=== PATIENT | female | born 1955 | race African-American/Black ===

== ENCOUNTER 2024-10-18 16:37 | Emergency (ER) | payer MEDICARE, OTHER ==
[~2024-10-18] VITALS: Ht 162.6 cm; Wt 90.7 kg
[2024-10-18] MEDS ORDERED: DIATR MEGLU/DIATRIZOATE SODIUM 30 ML BOTTLE (GASTROGRAPHIN) ONE (16:52)
[2024-10-18 17:46] LABS: CALCIUM, SERUM 9.3 mg/dL (8.5-10.1); CREATININE 0.5 mg/dL (0.6-1.3); POTASSIUM 3.5 mmol/L (3.5-5.1)
[2024-10-18 17:52] LABS: INR 1.06 (0.91-1.10); PARTIAL THROMBOPLASTIN TIME 27.6 SEC (24.3-34.3); PROTHROMBIN TIME 10.9 SECS (9.2-11.1)
[2024-10-18 18:00] LABS: BASOPHILS % (AUTO) 0.4 % (0.0-2.0); EOSINOPHILS # (AUTO) 0.5 K/uL (0.0-0.7); EOSINOPHILS % (AUTO) 4.4 % (0.0-6.0); HEMATOCRIT 29 % (33-45); HEMOGLOBIN 8.8 g/dL (11.5-14.8); LYMPHOCYTES # (AUTO) 0.8 K/uL (0.8-4.8); LYMPHOCYTES % (AUTO) 7.5 % (20.0-44.0); MEAN CORPUSCULAR HEMOGLOBIN 22 PG (26.0-33.0); MEAN CORPUSCULAR HGB CONC 30 g/dl (31.0-36.0); MEAN CORPUSCULAR VOLUME 73 fL (82-100); MONOCYTES % (AUTO) 9.2 % (2.0-12.0); NEUTROPHILS # (AUTO) 8.8 K/uL (1.8-8.9); NEUTROPHILS % (AUTO) 78.5 % (43.0-81.0); RED BLOOD CELL COUNT(AUTO) 3.98 MIL/uL (4.0-5.2); RED CELL DISTRIBUTION WIDTH 20.8 % (11.5-15.0); WHITE BLOOD COUNT (AUTO) 11.2 K/uL (4.3-11.0)
[2024-10-18] MEDS ORDERED: ACET-868 GT ×3 (19:05)
[2024-10-18] MEDS ORDERED: ATOR80TA GT (19:05)
[2024-10-18] MEDS ORDERED: LEVE100S GT (19:05)
[2024-10-18] MEDS ORDERED: CHOL100043 GT (19:05)
[2024-10-18] MEDS ORDERED: L. A1TAB10 GT (19:05)
[2024-10-18] MEDS ORDERED: DOCU100T2 GT (19:05)
[2024-10-18] MEDS ORDERED: MAGN400T30 GT (19:05)
[2024-10-18] MEDS ORDERED: MULT-213 GT (19:05)
[2024-10-18] MEDS ORDERED: ALBU2.5V13 IH (19:05)
[2024-10-18] MEDS ORDERED: CLOP75TA15 GT (19:05)
[2024-10-18] MEDS ORDERED: PREG300C GT (19:05)
[2024-10-18] MEDS ORDERED: CHLO473M5 MM (19:05)
[2024-10-18] MEDS ORDERED: NUT.237L30 GT (19:05)
[2024-10-18] MEDS ORDERED: MAGN400O6 GT (19:05)
[2024-10-18] MEDS ORDERED: APIX2.5T GT (19:05)
[2024-10-18] MEDS ORDERED: ISOS20TA15 GT (19:05)
[2024-10-18] MEDS ORDERED: TRAM50TA2 GT ×2 (19:05)
[2024-10-18] MEDS ORDERED: IPRA0.2S9 IH ×2 (19:05)
[2024-10-18] MEDS ORDERED: COLL30OI TP (19:05)
[2024-10-18] MEDS ORDERED: PETR113O TP (19:05)
[2024-10-18] MEDS ORDERED: CRAN250C GT (19:05)
[2024-10-18] MEDS ORDERED: ASCO-352 GT (19:05)
[2024-10-18] MEDS ORDERED: TRIA80CR12 TP (19:05)
[2024-10-18] MEDS ORDERED: AMLO10TA4 GT (19:05)
[2024-10-18] MEDS ORDERED: HYDR-4075 GT (19:05)
[2024-10-18] MEDS ORDERED: INSU100I26 SQ (19:05)
[2024-10-18] MEDS ORDERED: PANT40TA2 GT (19:05)
[2024-10-18] MEDS ORDERED: ALBU2.5V38 IH (19:05)
[2024-10-18] MEDS ORDERED: ACET-2030 GT (19:05)
[2024-10-18] MEDS ORDERED: AMIN30LI66 GT (19:05)
[2024-10-18] MEDS ORDERED: OXCA600T5 GT (19:05)
[2024-10-18] MEDS ORDERED: INSU100V39 SQ (19:05)
[2024-10-18] MEDS ORDERED: NEBI5TAB8 GT (19:05)
[2024-10-18 19:27] LABS: LYMPHOCYTES % (MANUAL) 10 % (16-48); NEUTROPHILS % (MANUAL) 80 (42-76)
[2024-10-18 19:28] LABS: ANISOCYTOSIS 1+; BASOPHILS % (MANUAL) 0 % (0.0-2.0); EOSINOPHILS % (MANUAL) 1 % (0-4); MONOCYTES % (MANUAL) 9 % (0-11.0); PLATELET ESTIMATE INCREASED
[2024-10-18 19:43] LABS: PLATELET COUNT (AUTO) 720 K/uL (150-450)
[2024-10-18 22:00] VITALS: BP 154/84; TEMP 98.4; O2SAT 98
== END 2024-10-18 22:50 ==
LOC: ER 16:40
DX: K94.23 Gastrostomy malfunction (principal); Z88.0 Allergy status to penicillin; Z99.11 Dependence on respirator [ventilator] status
CPT/HCPCS: 99285; 43762; 94799; 31720; 94002; Q9963; 36415; 71045-TC; 74018; 80048-TC; 85025-TC; 85730-TC

== ENCOUNTER 2024-10-19 09:37 | Inpatient (IN) | payer MEDICARE, OTHER ==
[~2024-10-19] VITALS: Ht 162.6 cm; Wt 78.6 kg
[~2024-10-19 09:37] MED LIST: ACET-2030 GT; ACET-868 GT; ALBU2.5V13 IH; ALBU2.5V38 IH; AMIN30LI66 GT; AMLO10TA4 GT; APIX2.5T GT; ASCO-352 GT; ATOR80TA GT; CHLO473M5 MM; CHOL100043 GT; CLOP75TA15 GT; COLL30OI TP; CRAN250C GT; DOCU100T2 GT; HYDR-4075 GT; INSU100I26 SQ; INSU100V39 SQ; IPRA0.2S9 IH; ISOS20TA15 GT; L. A1TAB10 GT; LEVE100S GT; MAGN400O6 GT; MAGN400T30 GT; MULT-213 GT; NEBI5TAB8 GT; NUT.237L30 GT; OXCA600T5 GT; PANT40TA2 GT; PETR113O TP; PREG300C GT; TRAM50TA2 GT; TRIA80CR12 TP
[2024-10-19 10:26] LABS: PLATELET COUNT (AUTO) 779 K/uL (150-450); RED BLOOD CELL COUNT(AUTO) 3.87 MIL/uL (4.0-5.2); RED CELL DISTRIBUTION WIDTH 21.2 % (11.5-15.0); WHITE BLOOD COUNT (AUTO) 12.1 K/uL (4.3-11.0)
[2024-10-19 10:32] LABS: CALCIUM, SERUM 9.5 mg/dL (8.5-10.1); CREATININE 0.6 mg/dL (0.6-1.3); SODIUM SERUM 138.0 mmol/L (136-145); UREA NITROGEN, BLOOD 12.0 mg/dL (7-18)
[2024-10-19 10:40] LABS: INR 1.13 (0.91-1.10)
[2024-10-19] MEDS ORDERED: ONDANSETRON HCL/PF 4 MG/2 ML VIAL IVP PRN (13:00)
[2024-10-19] MEDS ORDERED: DEXTROSE 50%-WATER 50 ML DISP.SYRIN IV PRN (13:00)
[2024-10-19] MEDS: ENOXAPARIN SODIUM 40 MG/0.4 ML DISP.SYRIN SQ SCH (13:00)
[2024-10-19] MEDS: LEVETIRACETAM (500MG) 500 MG in IV NS 0.9% 100 ML IV SCH (14:39)
[2024-10-19 16:00] VITALS: BP 131/76; TEMP 97.5; O2SAT 100
[2024-10-19] MEDS: BLOOD SUGAR DIAGNOSTIC 1 EACH STRIP IN SCH (18:26)
[2024-10-19] MEDS: INSULIN REGULAR, HUMAN 100 UNIT/ML 3 ML VIAL SQ PRN (18:30)
[2024-10-19 20:00] VITALS: BP 117/65; TEMP 98.4; O2SAT 100
[2024-10-19 21:06] LABS: EOSINOPHILS % (MANUAL) 2 % (0-4); LYMPHOCYTES % (MANUAL) 9 % (16-48); MONOCYTES % (MANUAL) 8 % (0-11.0); NEUTROPHILS % (MANUAL) 81 (42-76); PLATELET ESTIMATE INCRE
[2024-10-19] MEDS: IV D5/0.45 NACL 1,000 ML IV PRN (23:40)
[2024-10-20] VITALS: BP 116/62; TEMP 98.6; O2SAT 96
[2024-10-20] MEDS: Z GUARD REMEDY 4 OZ OINT TP PRN (00:36)
[2024-10-20 04:00] VITALS: BP 128/61; TEMP 98.4; O2SAT 100
[2024-10-20 07:35] LABS: PLATELET COUNT (AUTO) 750 K/uL (150-450); RED BLOOD CELL COUNT(AUTO) 3.70 MIL/uL (4.0-5.2); RED CELL DISTRIBUTION WIDTH 20.6 % (11.5-15.0); WHITE BLOOD COUNT (AUTO) 9.7 K/uL (4.3-11.0)
[2024-10-20 08:00] VITALS: BP 118/60; TEMP 98.1; O2SAT 100
[2024-10-20] MEDS: PANTOPRAZOLE 40 MG VIAL IV SCH (08:08)
[2024-10-20 08:12] LABS: CALCIUM, SERUM 9.5 mg/dL (8.5-10.1); CREATININE 0.5 mg/dL (0.6-1.3); PHOSPHORUS 4.2 mg/dL (2.5-4.9); SODIUM SERUM 143.0 mmol/L (136-145); UREA NITROGEN, BLOOD 9.0 mg/dL (7-18)
[2024-10-20] MEDS: POTASSIUM CL. PREMIX PERIPHER. 50 ML IV SCH (10:08)
[2024-10-20 12:00] VITALS: BP 156/80; TEMP 98.4; O2SAT 100
[2024-10-20 16:00] VITALS: BP 150/58; TEMP 97.9; O2SAT 100
[2024-10-20 20:00] VITALS: BP 123/55; TEMP 98.9; O2SAT 100
[2024-10-21] VITALS: BP 120/64; TEMP 98.8; O2SAT 100
[2024-10-21 04:00] VITALS: BP 135/67; TEMP 98.8; O2SAT 100
[2024-10-21 07:43] LABS: PLATELET COUNT (AUTO) 769 K/uL (150-450); RED BLOOD CELL COUNT(AUTO) 3.61 MIL/uL (4.0-5.2); RED CELL DISTRIBUTION WIDTH 20.7 % (11.5-15.0); WHITE BLOOD COUNT (AUTO) 9.2 K/uL (4.3-11.0)
[2024-10-21 08:00] VITALS: BP 131/60; TEMP 98.6; O2SAT 100
[2024-10-21 08:54] LABS: CALCIUM, SERUM 9.3 mg/dL (8.5-10.1); CREATININE 0.5 mg/dL (0.6-1.3); PHOSPHORUS 3.8 mg/dL (2.5-4.9); UREA NITROGEN, BLOOD 5.0 mg/dL (7-18)
[2024-10-21 08:57] LABS: SODIUM SERUM 143.0 mmol/L (136-145)
[2024-10-21] MEDS: POTASSIUM CL. PREMIX PERIPHER. 50 ML IV SCH (11:10)
[2024-10-21 12:00] VITALS: BP 165/73; TEMP 98.2; O2SAT 99
[2024-10-21] MEDS: hydrALAZINE HCL IV 20 MG VIAL IV PRN (12:17)
[2024-10-21 13:44] LABS: EOSINOPHILS % (MANUAL) 5 % (0-4); LYMPHOCYTES % (MANUAL) 11 % (16-48); MONOCYTES % (MANUAL) 10 % (0-11.0); NEUTROPHILS % (MANUAL) 74 (42-76)
[2024-10-21 13:45] LABS: PLATELET ESTIMATE INCREASED
[2024-10-21 16:00] VITALS: BP 158/59; TEMP 98.2; O2SAT 99
[2024-10-21 20:00] VITALS: BP 163/99; TEMP 98.4; O2SAT 100
[2024-10-22] VITALS: BP 177/66; TEMP 98.8; O2SAT 100
[2024-10-22 05:07] VITALS: BP 155/67; TEMP 98.8; O2SAT 100
[2024-10-22 07:21] LABS: ASPARTATE AMINOTRANSFERASE 28.0 U/L (15-37); CALCIUM, SERUM 9.7 mg/dL (8.5-10.1); CREATININE 0.5 mg/dL (0.6-1.3); PHOSPHORUS 4.2 mg/dL (2.5-4.9); SODIUM SERUM 145.0 mmol/L (136-145); TOTAL PROTEIN, SERUM 7.5 g/dL (6.4-8.2); UREA NITROGEN, BLOOD 3.0 mg/dL (7-18)
[2024-10-22 07:42] LABS: PLATELET COUNT (AUTO) 779 K/uL (150-450); RED BLOOD CELL COUNT(AUTO) 4.14 MIL/uL (4.0-5.2); RED CELL DISTRIBUTION WIDTH 20.4 % (11.5-15.0); WHITE BLOOD COUNT (AUTO) 9.6 K/uL (4.3-11.0)
[2024-10-22 08:00] VITALS: BP 155/70; TEMP 98.2; O2SAT 100
[2024-10-22 12:00] VITALS: BP 155/70; TEMP 98.2; O2SAT 100
[2024-10-22] MEDS: DAKINS QUARTER STRENGTH (0.125%) 480 ML BOTTLE TOP SCH (12:12)
[2024-10-22 13:49] LABS: EOSINOPHILS % (MANUAL) 4 % (0-4); MONOCYTES % (MANUAL) 10 % (0-11.0); NEUTROPHILS % (MANUAL) 74 (42-76); PLATELET ESTIMATE INCREASED
[2024-10-22 15:26] LABS: LYMPHOCYTES % (MANUAL) 12 % (16-48)
[2024-10-22 16:00] VITALS: BP 138/70; TEMP 98.2; O2SAT 100
[2024-10-22 22:10] VITALS: BP 144/68; TEMP 97.9; O2SAT 100
[2024-10-23] VITALS: BP 146/70; TEMP 98; O2SAT 100
[2024-10-23 04:00] VITALS: BP 160/63; TEMP 98.9; O2SAT 100
[2024-10-23 06:43] LABS: CALCIUM, SERUM 9.2 mg/dL (8.5-10.1); CREATININE 0.4 mg/dL (0.6-1.3); SODIUM SERUM 144.0 mmol/L (136-145); UREA NITROGEN, BLOOD 0.0 mg/dL (7-18)
[2024-10-23 08:00] VITALS: BP 166/71; TEMP 99.3; O2SAT 99
[2024-10-23] MEDS: POTASSIUM CL. PREMIX PERIPHER. 50 ML IV SCH (10:32)
[2024-10-23 12:00] VITALS: BP 149/75; TEMP 99.1; O2SAT 100
[2024-10-23] MEDS: CLINDAMYCIN IV RTU IN D5W 600 MG/50 ML PIGGYBACK IV ONE (14:12)
[2024-10-23 16:00] VITALS: BP 155/79; TEMP 99.2; O2SAT 100
[2024-10-23] MEDS: GLUCERNA 1.2 1,000 ML BOTTLE NG PRN (16:18)
[2024-10-23 20:00] VITALS: BP 150/85; TEMP 98.9; O2SAT 100
[2024-10-24] VITALS: BP 140/82; TEMP 99; O2SAT 100
[2024-10-24 04:00] VITALS: BP 137/76; TEMP 98.6; O2SAT 100
[2024-10-24 06:51] LABS: PLATELET COUNT (AUTO) 753 K/uL (150-450); RED BLOOD CELL COUNT(AUTO) 3.97 MIL/uL (4.0-5.2); RED CELL DISTRIBUTION WIDTH 20.5 % (11.5-15.0); WHITE BLOOD COUNT (AUTO) 10.1 K/uL (4.3-11.0)
[2024-10-24 07:08] LABS: ASPARTATE AMINOTRANSFERASE 18.0 U/L (15-37); CALCIUM, SERUM 9.5 mg/dL (8.5-10.1); CREATININE 0.5 mg/dL (0.6-1.3); PHOSPHORUS 3.9 mg/dL (2.5-4.9); SODIUM SERUM 142.0 mmol/L (136-145); TOTAL PROTEIN, SERUM 7.3 g/dL (6.4-8.2); UREA NITROGEN, BLOOD 0.0 mg/dL (7-18)
[2024-10-24 08:00] VITALS: BP 155/74; TEMP 98.2; O2SAT 100
[2024-10-24] MEDS: DAKINS QUARTER STRENGTH (0.125%) 480 ML BOTTLE TOP SCH (08:47)
[2024-10-24] MEDS: PANTOPRAZOLE 40 MG/PACK PACK GT SCH (08:54)
[2024-10-24] MEDS: ENOXAPARIN SODIUM 40 MG/0.4 ML DISP.SYRIN SQ SCH (09:00)
[2024-10-24] MEDS: MAGNESIUM OXIDE 400 MG TABLET NG ONE (10:10)
[2024-10-24 10:48] LABS: LYMPHOCYTES % (MANUAL) 24 % (16-48); MONOCYTES % (MANUAL) 6 % (0-11.0); NEUTROPHILS % (MANUAL) 70 (42-76); PLATELET ESTIMATE DECREASED
[2024-10-24 12:00] VITALS: BP 155/74; TEMP 98.6; O2SAT 100
[2024-10-24 16:32] VITALS: BP 153/87; TEMP 99; O2SAT 100
[2024-10-24 20:00] VITALS: BP 159/80; TEMP 99; O2SAT 100
[2024-10-25] VITALS: BP 152/74; TEMP 100.8; O2SAT 100
[2024-10-25] MEDS: CEFEPIME 1 GM in IV D5W 50 ML IV SCH (01:00)
[2024-10-25] MEDS ORDERED: DOSING PER PHARMACY-VANCOMYCIN IV XX PRN (01:00)
[2024-10-25 01:11] LABS: FOLIC ACID 14.3 ng/mL (>3.0)
[2024-10-25 01:46] LABS: APPEARANCE,URINE CLOUDY (CLEAR); BLOOD, URINE 2+ Ery/uL (NEGATIVE); LEUKOCYTE ESTERASE ,URINE 3+ (NEGATIVE); NITRITE, URINE POSITIVE (NEGATIVE); UGLUCOSE NEGATIVE (NEGATIVE)
[2024-10-25 01:47] LABS: ADD URINE CULTURE YES; SQUAMOUS EPITHELIAL CELL,UR Rare /HPF (None Seen)
[2024-10-25] MEDS ORDERED: CEFEPIME 1 GM VIAL ONE (01:59)
[2024-10-25] MEDS: VANCOMYCIN 1 GM /D5W 250 ML PB IV ONE (01:59)
[2024-10-25] MEDS: VANCOMYCIN 1 GM in IV NS 0.9% 250 ML IV ONE (02:02)
[2024-10-25] MEDS: IV NS 0.9% 500 ML IV ONE (02:28)
[2024-10-25 04:00] VITALS: BP 150/78; TEMP 99; O2SAT 100
[2024-10-25 06:52] LABS: PLATELET COUNT (AUTO) 664 K/uL (150-450); RED BLOOD CELL COUNT(AUTO) 3.97 MIL/uL (4.0-5.2); RED CELL DISTRIBUTION WIDTH 21.0 % (11.5-15.0); WHITE BLOOD COUNT (AUTO) 15.4 K/uL (4.3-11.0)
[2024-10-25 07:18] LABS: ASPARTATE AMINOTRANSFERASE 15.0 U/L (15-37); CALCIUM, SERUM 9.0 mg/dL (8.5-10.1); CREATININE 0.5 mg/dL (0.6-1.3); PHOSPHORUS 3.4 mg/dL (2.5-4.9); SODIUM SERUM 141.0 mmol/L (136-145); TOTAL PROTEIN, SERUM 6.7 g/dL (6.4-8.2); UREA NITROGEN, BLOOD 3.0 mg/dL (7-18)
[2024-10-25 08:00] VITALS: BP 141/66; TEMP 99.9; O2SAT 99
[2024-10-25 12:00] VITALS: BP 148/59; TEMP 101.1; O2SAT 99
[2024-10-25] MEDS: ACETAMINOPHEN 650 MG/SUPP.RECT RC PRN (12:12)
[2024-10-25 16:17] VITALS: BP 141/66; TEMP 99.9; O2SAT 99
[2024-10-25] MEDS: VANCOMYCIN 750 MG in IV D5W 250 ML IV SCH (17:15)
[2024-10-25 20:00] VITALS: BP 167/69; TEMP 99.1; O2SAT 97
[2024-10-26] VITALS (12 sets, daily range): BP systolic 110–159; BP diastolic 57–88; TEMP 98.4–100.8; O2SAT 97–100
[2024-10-26] MEDS: LORAZEPAM INJ 2 MG/ML VIAL IV ONE ×2 (03:24→07:16)
[2024-10-26] MEDS ORDERED: LEVETIRACETAM (500MG) 500 MG/5 ML VIAL IV ONE ×2 (03:25→03:41)
[2024-10-26] MEDS ORDERED: LEVETIRACETAM (500MG) 1,000 MG in IV NS 0.9% 90 ML IV SCH (03:30)
[2024-10-26] MEDS ORDERED: LEVETIRACETAM (500MG) 500 MG in IV NS 0.9% 100 ML IV SCH (03:30)
[2024-10-26] MEDS: LEVETIRACETAM (500MG) 1,000 MG in IV NS 0.9% 90 ML IV ONE (04:03)
[2024-10-26 07:12] LABS: ASPARTATE AMINOTRANSFERASE 20.0 U/L (15-37); CALCIUM, SERUM 9.0 mg/dL (8.5-10.1); CREATININE 0.4 mg/dL (0.6-1.3); PHOSPHORUS 3.7 mg/dL (2.5-4.9); SODIUM SERUM 135.0 mmol/L (136-145); TOTAL PROTEIN, SERUM 7.2 g/dL (6.4-8.2); UREA NITROGEN, BLOOD 3.0 mg/dL (7-18)
[2024-10-26 07:53] LABS: RED BLOOD CELL COUNT(AUTO) 4.05 MIL/uL (4.0-5.2); RED CELL DISTRIBUTION WIDTH 21.1 % (11.5-15.0); WHITE BLOOD COUNT (AUTO) 15.7 K/uL (4.3-11.0)
[2024-10-26 08:19] LABS: PLATELET COUNT (AUTO) 549 K/uL (150-450)
[2024-10-26] MEDS: LEVETIRACETAM (500MG) 500 MG in IV NS 0.9% 100 ML IV SCH (08:51)
[2024-10-26 15:29] LABS: LYMPHOCYTES % (MANUAL) 10 % (16-48); MONOCYTES % (MANUAL) 7 % (0-11.0); NEUTROPHILS % (MANUAL) 83 (42-76); PLATELET ESTIMATE ADEQUATE
[2024-10-26] MEDS: LEVETIRACETAM (500MG) 2,000 MG in IV NS 0.9% 80 ML IV ONE (17:44)
[2024-10-26] MEDS: MEROPENEM 1 G in IV NS 0.9% 100 ML IV SCH (20:40)
[2024-10-26] MEDS: LEVETIRACETAM (500MG) 1,000 MG in IV NS 0.9% 90 ML IV SCH (20:56)
[2024-10-27] VITALS: BP 113/60; TEMP 99.3; O2SAT 100
[2024-10-27] MEDS ORDERED: VANCOMYCIN 1 GM in IV D5W 250ml IV SCH (02:00)
[2024-10-27 04:00] VITALS: BP 114/56; TEMP 97.2; O2SAT 100
[2024-10-27 08:00] VITALS: BP 126/73; TEMP 99.3; O2SAT 100
[2024-10-27] MEDS ORDERED: LEVETIRACETAM (500MG) 1,000 MG in IV NS 0.9% 90 ML IV SCH (09:00)
[2024-10-27] MEDS: ACETAMINOPHEN 650 MG/20.3 ML UDC GT PRN (09:43)
[2024-10-27 09:59] LABS: PLATELET COUNT (AUTO) 461 K/uL (150-450); RED BLOOD CELL COUNT(AUTO) 3.40 MIL/uL (4.0-5.2); RED CELL DISTRIBUTION WIDTH 21.1 % (11.5-15.0); WHITE BLOOD COUNT (AUTO) 14.0 K/uL (4.3-11.0)
[2024-10-27 10:14] LABS: ASPARTATE AMINOTRANSFERASE 21.0 U/L (15-37); CALCIUM, SERUM 9.1 mg/dL (8.5-10.1); CREATININE 0.5 mg/dL (0.6-1.3); PHOSPHORUS 3.4 mg/dL (2.5-4.9); SODIUM SERUM 141.0 mmol/L (136-145); TOTAL PROTEIN, SERUM 6.8 g/dL (6.4-8.2); UREA NITROGEN, BLOOD 4.0 mg/dL (7-18)
[2024-10-27 12:00] VITALS: BP 118/63; TEMP 100.1; O2SAT 100
[2024-10-27] MEDS: PROSOURCE / PROSTAT (PYXIS) 30 ML UDC GT SCH (12:46)
[2024-10-27] MEDS: ARGININE/GLUTAMINE/CALCIUM BMB 1 EACH POWD.PACK GT SCH (12:46)
[2024-10-27] MEDS: POTASSIUM CHLORIDE 20 MEQ TAB.PRT.SR PO ONE (15:21)
[2024-10-27 16:00] VITALS: BP 120/55; TEMP 99.9; O2SAT 100
[2024-10-27 20:00] VITALS: BP 113/56; TEMP 100.6; O2SAT 100
[2024-10-27] MEDS: LEVETIRACETAM (500MG) 2,000 MG in IV NS 0.9% 80 ML IV SCH (20:28)
[2024-10-28] VITALS: BP 115/58; TEMP 99.5; O2SAT 100
[2024-10-28 04:00] VITALS: BP 106/56; TEMP 98.4; O2SAT 100
[2024-10-28 08:00] VITALS: BP 126/67; TEMP 98.4; O2SAT 100
[2024-10-28 08:02] LABS: PLATELET COUNT (AUTO) 418 K/uL (150-450); RED BLOOD CELL COUNT(AUTO) 3.27 MIL/uL (4.0-5.2); RED CELL DISTRIBUTION WIDTH 20.8 % (11.5-15.0); WHITE BLOOD COUNT (AUTO) 12.2 K/uL (4.3-11.0)
[2024-10-28 09:04] LABS: ASPARTATE AMINOTRANSFERASE 18.0 U/L (15-37); CALCIUM, SERUM 8.9 mg/dL (8.5-10.1); CREATININE 0.4 mg/dL (0.6-1.3); PHOSPHORUS 2.9 mg/dL (2.5-4.9); TOTAL PROTEIN, SERUM 6.9 g/dL (6.4-8.2); UREA NITROGEN, BLOOD 9.0 mg/dL (7-18)
[2024-10-28 09:22] LABS: SODIUM SERUM 145.0 mmol/L (136-145)
[2024-10-28 12:00] VITALS: BP 163/63; TEMP 98.4; O2SAT 100
[2024-10-28 16:00] VITALS: BP 128/56; TEMP 98.4; O2SAT 100
[2024-10-28 17:07] LABS: METHYLMALONIC ACID 87.0 nmol/L (0-378)
[2024-10-28 20:00] VITALS: BP 91/45; TEMP 97.5; O2SAT 97
[2024-10-28 23:10] LABS: VITAMIN B1 THIAMINE,WB 87.9 nmol/L (66.5-200.0)
[2024-10-29] VITALS: BP 131/58; TEMP 98.8; O2SAT 99
[2024-10-29 04:00] VITALS: BP 116/56; TEMP 98.9; O2SAT 100
[2024-10-29 06:40] LABS: PLATELET COUNT (AUTO) 408 K/uL (150-450); RED BLOOD CELL COUNT(AUTO) 2.74 MIL/uL (4.0-5.2); RED CELL DISTRIBUTION WIDTH 21.4 % (11.5-15.0); WHITE BLOOD COUNT (AUTO) 13.2 K/uL (4.3-11.0)
[2024-10-29 06:41] LABS: ASPARTATE AMINOTRANSFERASE 15.0 U/L (15-37); CALCIUM, SERUM 8.8 mg/dL (8.5-10.1); CREATININE 0.5 mg/dL (0.6-1.3); PHOSPHORUS 2.8 mg/dL (2.5-4.9); SODIUM SERUM 141.0 mmol/L (136-145); TOTAL PROTEIN, SERUM 6.5 g/dL (6.4-8.2); UREA NITROGEN, BLOOD 7.0 mg/dL (7-18)
[2024-10-29 08:00] VITALS: BP 131/60; TEMP 100.1; O2SAT 100
[2024-10-29 12:00] VITALS: BP 109/64; TEMP 98.9; O2SAT 100
[2024-10-29] MEDS: LACOSAMIDE 200 MG in IV NS 0.9% 100 ML IV ONE (14:30)
[2024-10-29 14:49] LABS: LYMPHOCYTES % (MANUAL) 10 % (16-48); MONOCYTES % (MANUAL) 5 % (0-11.0); NEUTROPHILS % (MANUAL) 83 (42-76)
[2024-10-29 14:50] LABS: EOSINOPHILS % (MANUAL) 2 % (0-4); PLATELET ESTIMATE ADEQUATE
[2024-10-29 16:00] VITALS: BP 140/75; TEMP 99.7; O2SAT 100
[2024-10-29] MEDS: ACETAMINOPHEN 325 MG TABLET PO ONE (17:54)
[2024-10-29 18:42] LABS: IRON, SERUM 15.0 ug/dl (50-175)
[2024-10-29 20:00] VITALS: BP 159/99; TEMP 99.3; O2SAT 97
[2024-10-29] MEDS: PROPOFOL 100 ML IV PRN (21:52)
[2024-10-29] MEDS: LACOSAMIDE 150 MG in IV NS 0.9% 50 ML IV SCH (22:39)
[2024-10-30] VITALS (36 sets, daily range): BP systolic 98–163; BP diastolic 52–72; TEMP 98.7–99.8; O2SAT 96–100
[2024-10-30 04:42] LABS: PLATELET COUNT (AUTO) 398 K/uL (150-450); RED BLOOD CELL COUNT(AUTO) 3.09 MIL/uL (4.0-5.2); RED CELL DISTRIBUTION WIDTH 20.6 % (11.5-15.0); WHITE BLOOD COUNT (AUTO) 12.6 K/uL (4.3-11.0)
[2024-10-30 05:06] LABS: ASPARTATE AMINOTRANSFERASE 13.0 U/L (15-37); CALCIUM, SERUM 8.9 mg/dL (8.5-10.1); CREATININE 0.4 mg/dL (0.6-1.3); PHOSPHORUS 3.0 mg/dL (2.5-4.9); SODIUM SERUM 141.0 mmol/L (136-145); TOTAL PROTEIN, SERUM 6.5 g/dL (6.4-8.2); UREA NITROGEN, BLOOD 10.0 mg/dL (7-18)
[2024-10-30] MEDS: IV NS 0.9% 250 ML IV PRN (05:21)
[2024-10-30 05:57] LABS: BASOPHILS % (MANUAL) 0 % (0.0-2.0); EOSINOPHILS % (MANUAL) 2 % (0-4); LYMPHOCYTES % (MANUAL) 10 % (16-48); MONOCYTES % (MANUAL) 7 % (0-11.0); NEUTROPHILS % (MANUAL) 81 (42-76); PLATELET ESTIMATE ADEQUATE
[2024-10-30] MEDS: POTASSIUM CHLORIDE 20 MEQ POWDER PACKET GT ONE (10:10)
[2024-10-30] MEDS ORDERED: ACETAMINOPHEN 325 MG TABLET PO ONE (13:30)
[2024-10-30] MEDS ORDERED: LACOSAMIDE 200 MG in IV NS 0.9% 50 ML IV SCH (21:00)
[2024-10-30] MEDS: VIMPAT 200 MG in IV NS 0.9% 100 ML IV SCH (21:31)
[2024-10-31] VITALS (27 sets, daily range): BP systolic 99–183; BP diastolic 47–87; TEMP 98.4–99.8; O2SAT 98–100
[2024-10-31 04:13] LABS: CALCIUM, SERUM 8.8 mg/dL (8.5-10.1); CREATININE 0.4 mg/dL (0.6-1.3); SODIUM SERUM 145.0 mmol/L (136-145); UREA NITROGEN, BLOOD 8.0 mg/dL (7-18)
[2024-10-31] MEDS: PANTOPRAZOLE 40 MG VIAL IV SCH (08:05)
[2024-10-31 09:01] LABS: WHITE BLOOD COUNT (AUTO) 14.0 K/uL (4.3-11.0)
[2024-10-31 09:40] LABS: PLATELET COUNT (AUTO) 428 K/uL (150-450); RED BLOOD CELL COUNT(AUTO) 3.10 MIL/uL (4.0-5.2); RED CELL DISTRIBUTION WIDTH 21.4 % (11.5-15.0)
[2024-10-31 10:27] LABS: EOSINOPHILS % (MANUAL) 2 % (0-4); LYMPHOCYTES % (MANUAL) 17 % (16-48); MONOCYTES % (MANUAL) 6 % (0-11.0); NEUTROPHILS % (MANUAL) 75 (42-76); PLATELET ESTIMATE ADEQUATE
[2024-10-31 11:07] LABS: FREE KAPPA LT CHAINS SERUM 54.6 mg/L (3.3-19.4); FREE LAMBDA LT CHAIN SERUM 24.2 mg/L (5.7-26.3); IMMUNOGLOBULIN A, SERUM 245 mg/dL (87-352); IMMUNOGLOBULIN M, SERUM 113 mg/dL (26-217); KAPPA/LAMBDA RATIO SERUM 2.26 (0.26-1.65)
[2024-11-01 01:06] LABS: FOLIC ACID 8.6 ng/mL (>3.0)
[2024-11-01 16:07] LABS: *SPE A/G RATIO 0.7 (0.7-1.7); *SPE ALBUMIN 2.3 g/dL (2.9-4.4); *SPE ALPHA-1-GLOBULIN 0.4 g/dL (0.0-0.4); *SPE ALPHA-2-GLOBULIN 1.0 g/dL (0.4-1.0); *SPE BETA GLOBULIN 1.1 g/dL (0.7-1.3); *SPE GLOBULIN, TOTAL 3.5 g/dL (2.2-3.9); *SPE M-SPIKE Not Observed g/dL (Not Observed); *SPE PROTEIN TOTAL 5.8 g/dL (6.0-8.5); *SPEGAMMA GLOBULIN 1.0 g/dL (0.4-1.8)
== END 2024-10-31 22:46 | disposition short-term general hospital (02) | DRG 981 ==
LOC: ER 09:42 → TELE1 11:33 → ICU 10-29 21:32
PROVIDERS: ATTEND Internal Medicine
PROC: 5A1955Z Respiratory Ventilation, Greater than 96 Consecutive Hours (ICD-10-PCS; principal; 2024-10-19)
PROC: 0DH63UZ Insertion of Feeding Device into Stomach, Percutaneous Approach (ICD-10-PCS; 2024-10-23)
PROC: 0KBN0ZZ Excision of Right Hip Muscle, Open Approach (ICD-10-PCS; 2024-10-26)
PROC: 0KBP0ZZ Excision of Left Hip Muscle, Open Approach (ICD-10-PCS; 2024-10-26)
PROC: 0KBS0ZZ Excision of Right Lower Leg Muscle, Open Approach (ICD-10-PCS; 2024-10-30)
DX: K94.23 Gastrostomy malfunction (principal); L89.154 Pressure ulcer of sacral region, stage 4; L89.894 Pressure ulcer of other site, stage 4; J96.10 Chronic respiratory failure, unspecified whether with hypoxia or hypercapnia; R40.3 Persistent vegetative state; Z99.11 Dependence on respirator [ventilator] status; L03.115 Cellulitis of right lower limb; G93.1 Anoxic brain damage, not elsewhere classified; Z16.12 Extended spectrum beta lactamase (ESBL) resistance; N39.0 Urinary tract infection, site not specified; I48.91 Unspecified atrial fibrillation; G40.901 Epilepsy, unspecified, not intractable, with status epilepticus; R13.10 Dysphagia, unspecified; K29.70 Gastritis, unspecified, without bleeding; D50.9 Iron deficiency anemia, unspecified; E11.9 Type 2 diabetes mellitus without complications; E78.5 Hyperlipidemia, unspecified; F03.90 Unspecified dementia, unspecified severity, without behavioral disturbance, psychotic disturbance, mood disturbance, and anxiety; I10 Essential (primary) hypertension; Z79.01 Long term (current) use of anticoagulants; Z86.73 Personal history of transient ischemic attack (TIA), and cerebral infarction without residual deficits; Z88.0 Allergy status to penicillin; Z79.4 Long term (current) use of insulin; L98.8 Other specified disorders of the skin and subcutaneous tissue; L89.610 Pressure ulcer of right heel, unstageable; B96.20 Unspecified Escherichia coli [E. coli] as the cause of diseases classified elsewhere; D72.829 Elevated white blood cell count, unspecified; Z53.29 Procedure and treatment not carried out because of patient's decision for other reasons; Y83.3 Surgical operation with formation of external stoma as the cause of abnormal reaction of the patient, or of later complication, without mention of misadventure at the time of the procedure; Y73.8 Miscellaneous gastroenterology and urology devices associated with adverse incidents, not elsewhere classified; Y92.129 Unspecified place in nursing home as the place of occurrence of the external cause; Z93.0 Tracheostomy status
CPT/HCPCS: 31720; 36415; 43246; 70450-TC; 71045-TC; 74018; 80048-TC; 80053-TC; 80202-TC; 81001; 82607-TC; 82728-TC; 82784; 82962-TC; 83540-TC; 83605-TC; 83735-TC; 83921; 84100-TC; 84155; 84165; 84425; 84443-TC; 85025-TC; 85027-TC; 85730-TC; 86334; 86850-TC; 87040-TC; 87070-TC; 87081-TC; 87086-TC; 87186-TC; 87205-TC; 94002-TC; 94003-TC; 94640-TC; 94760-TC; 94762-TC; 94799-TC; 95819-TC; 99082-TC; A4223; A4623; A6213; A6403; A7526; G0378; J0360; J0692; J1650; J1815; J1953; J2060; J2185; J2470; J2704; J3370; J3371; J3480; J3490; J7030; J7042; J7050; J7060; J7070

== ENCOUNTER 2024-11-05 18:54 | Inpatient (IN) | payer MEDICARE, OTHER ==
[~2024-11-05] VITALS: Ht 162.6 cm; Wt 72.1 kg
[2024-11-06] VITALS: BP 157/74; TEMP 98; O2SAT 100
[2024-11-06] MEDS ORDERED: MAGNESIUM HYDROXIDE 30 ML UDC PO PRN (02:00)
[2024-11-06] MEDS ORDERED: ZOLPIDEM TARTRATE 5 MG TABLET PO PRN (02:00)
[2024-11-06] MEDS ORDERED: ENOXAPARIN SODIUM 40 MG/0.4 ML DISP.SYRIN SQ SCH (02:00)
[2024-11-06] MEDS ORDERED: MAG HYDROX/AL HYDROX/SIMETH 30 ML UDC PO PRN (02:00)
[2024-11-06] MEDS ORDERED: ONDANSETRON HCL/PF 4 MG/2 ML VIAL IVP PRN (02:00)
[2024-11-06 04:00] VITALS: BP 139/77; TEMP 99; O2SAT 100
[2024-11-06] MEDS ORDERED: PANTOPRAZOLE 40 MG TABLET.DR PO SCH ×2 (07:30→09:00)
[2024-11-06 08:00] VITALS: BP 116/82; TEMP 99; O2SAT 97
[2024-11-06] MEDS ORDERED: IPRATROPIUM NEB FS 0.5 MG/2.5 ML AMPUL.NEB NEB PRN (09:00)
[2024-11-06] MEDS ORDERED: TRAMADOL HCL 50 MG TABLET GT PRN (09:00)
[2024-11-06] MEDS: ISOSORBIDE MONONITRATE 20 MG TABLET PO SCH (09:00)
[2024-11-06] MEDS ORDERED: COLLAGENASE 30 GM TUBE TP SCH (09:00)
[2024-11-06] MEDS ORDERED: DEXTROSE 50%-WATER 50 ML DISP.SYRIN IV PRN (09:00)
[2024-11-06] MEDS ORDERED: ALBUTEROL FS 2.5 MG/3 ML VIAL.NEB NEB PRN (09:00)
[2024-11-06] MEDS ORDERED: DOCUSATE SODIUM 100 MG CAPSULE PO PRN (09:30)
[2024-11-06] MEDS: THERAHONEY GEL 1.5 OZ TUBE TP SCH (09:31)
[2024-11-06] MEDS: PANTOPRAZOLE 40 MG/PACK PACK GT SCH (09:31)
[2024-11-06] MEDS: ACIDOPHILUS/BULGARICUS 1 EACH TAB.CHEW GT SCH (09:31)
[2024-11-06] MEDS: LEVETIRACETAM SOL (5 ML) 100 MG/ML UDC GT SCH ×2 (09:31→21:03)
[2024-11-06] MEDS: AMLODIPINE BESYLATE 10 MG TABLET GT SCH (09:31)
[2024-11-06] MEDS: MAGNESIUM OXIDE 400 MG TABLET GT SCH (09:31)
[2024-11-06] MEDS: ASCORBIC ACID 500 MG TABLET GT SCH (09:31)
[2024-11-06] MEDS: CLOPIDOGREL BISULFATE 75 MG TABLET GT SCH (09:31)
[2024-11-06] MEDS: DAKINS QUARTER STRENGTH (0.125%) 480 ML BOTTLE TOP SCH (09:32)
[2024-11-06] MEDS: CHLORHEXIDINE GLUCONATE 15 ML UDC MM SCH (09:32)
[2024-11-06 09:39] LABS: RED BLOOD CELL COUNT(AUTO) 3.86 MIL/uL (4.0-5.2); WHITE BLOOD COUNT (AUTO) 11.9 K/uL (4.3-11.0)
[2024-11-06 09:40] LABS: CALCIUM, SERUM 9.6 mg/dL (8.5-10.1); CREATININE 0.4 mg/dL (0.6-1.3); SODIUM SERUM 141.0 mmol/L (136-145); UREA NITROGEN, BLOOD 6.0 mg/dL (7-18)
[2024-11-06 09:44] LABS: PLATELET COUNT (AUTO) 642 K/uL (150-450); RED CELL DISTRIBUTION WIDTH 22.8 % (11.5-15.0)
[2024-11-06 09:46] LABS: ASPARTATE AMINOTRANSFERASE 21.0 U/L (15-37); TOTAL PROTEIN, SERUM 7.6 g/dL (6.4-8.2)
[2024-11-06] MEDS: APIXABAN 2.5 MG TABLET GT SCH (11:21)
[2024-11-06] MEDS: BLOOD SUGAR DIAGNOSTIC 1 EACH STRIP IN SCH (11:38)
[2024-11-06] MEDS: INSULIN REGULAR, HUMAN 100 UNIT/ML 3 ML VIAL SQ PRN (11:39)
[2024-11-06] MEDS: SULFAMETH/TRIMETH 800/160 MG 1 UDTAB TABLET PO SCH (11:47)
[2024-11-06] MEDS: ACETAMINOPHEN 325 MG TABLET PO PRN (11:49)
[2024-11-06 12:00] VITALS: BP 121/68; TEMP 99.3; O2SAT 99
[2024-11-06 12:16] LABS: IRON, SERUM 40 ug/dl (50-175)
[2024-11-06] MEDS: GLUCERNA 1.2 1,000 ML BOTTLE NG PRN (12:28)
[2024-11-06] MEDS: COLISTIMETHATE SODIUM 150 MG CBA VIAL NEB SCH (13:33)
[2024-11-06 14:36] LABS: LYMPHOCYTES % (MANUAL) 18 % (16-48); MONOCYTES % (MANUAL) 2 % (0-11.0); NEUTROPHILS % (MANUAL) 76 (42-76)
[2024-11-06 14:37] LABS: PLATELET ESTIMATE INCREASED
[2024-11-06 16:00] VITALS: BP 139/67; TEMP 99.7; O2SAT 96
[2024-11-06] MEDS: TRIAMCINOLONE ACETONIDE 0.1% CR 15 GM TUBE TP SCH (16:14)
[2024-11-06] MEDS: OXCARBAZEPINE 150 MG TABLET GT SCH (16:14)
[2024-11-06] MEDS: METOPROLOL TARTRATE 25 MG TABLET GT SCH (16:28)
[2024-11-06 20:00] VITALS: BP 142/77; TEMP 98.1; O2SAT 99
[2024-11-06] MEDS: PREGABALIN 100 MG CAPSULE GT SCH (21:03)
[2024-11-06] MEDS: CLOBAZAM 10 MG PO SCH (22:17)
[2024-11-06] MEDS: ATORVASTATIN 40 MG TABLET GT SCH (22:23)
[2024-11-06] MEDS: INSULIN GLARGINE, 100 UNIT/ML CARTRIDGE SQ SCH (23:14)
[2024-11-07] VITALS: BP 110/62; TEMP 97.7; O2SAT 100
[2024-11-07 04:00] VITALS: BP 121/69; TEMP 98.1; O2SAT 99
[2024-11-07 07:45] LABS: PLATELET COUNT (AUTO) 608 K/uL (150-450); RED BLOOD CELL COUNT(AUTO) 3.78 MIL/uL (4.0-5.2); RED CELL DISTRIBUTION WIDTH 22.5 % (11.5-15.0); WHITE BLOOD COUNT (AUTO) 9.6 K/uL (4.3-11.0)
[2024-11-07 07:47] LABS: ASPARTATE AMINOTRANSFERASE 19.0 U/L (15-37); CALCIUM, SERUM 9.6 mg/dL (8.5-10.1); CREATININE 0.6 mg/dL (0.6-1.3); SODIUM SERUM 140.0 mmol/L (136-145); TOTAL PROTEIN, SERUM 7.4 g/dL (6.4-8.2); UREA NITROGEN, BLOOD 7.0 mg/dL (7-18)
[2024-11-07 08:00] VITALS: BP 125/67; TEMP 99.5; O2SAT 99
[2024-11-07 08:42] LABS: PHOSPHORUS 5.4 mg/dL (2.5-4.9)
[2024-11-07] MEDS ORDERED: CLOBAZAM 10 MG PO ONE (09:00)
[2024-11-07 09:09] LABS: BAND % (MANUAL) 1 % (0.0-5.0); EOSINOPHILS % (MANUAL) 8 % (0-4); LYMPHOCYTES % (MANUAL) 8 % (16-48); MONOCYTES % (MANUAL) 4 % (0-11.0); NEUTROPHILS % (MANUAL) 79 (42-76); PLATELET ESTIMATE INCREASED
[2024-11-07] MEDS: KEY,NONCONTROL,TO KEEP IN PYXI 1 EA MC ONE (09:13)
[2024-11-07] MEDS: CLOBAZAM 10 MG TABLET PO SCH (09:17)
[2024-11-07 12:00] VITALS: BP 100/62; TEMP 99; O2SAT 99
[2024-11-07 16:00] VITALS: BP 146/71; TEMP 98.5; O2SAT 98
[2024-11-07] MEDS: METOPROLOL TARTRATE 25 MG TABLET GT SCH (16:11)
[2024-11-07 20:00] VITALS: BP 102/59; TEMP 99.3; O2SAT 98
[2024-11-08] VITALS: BP 125/70; TEMP 98.8; O2SAT 99
[2024-11-08 04:00] VITALS: BP 117/67; TEMP 99.3; O2SAT 100
[2024-11-08 06:51] LABS: PLATELET COUNT (AUTO) 670 K/uL (150-450); RED BLOOD CELL COUNT(AUTO) 3.68 MIL/uL (4.0-5.2); RED CELL DISTRIBUTION WIDTH 22.4 % (11.5-15.0); WHITE BLOOD COUNT (AUTO) 12.1 K/uL (4.3-11.0)
[2024-11-08 07:04] LABS: CALCIUM, SERUM 9.6 mg/dL (8.5-10.1); CREATININE 0.6 mg/dL (0.6-1.3); SODIUM SERUM 138.0 mmol/L (136-145); UREA NITROGEN, BLOOD 12.0 mg/dL (7-18)
[2024-11-08 07:10] LABS: ASPARTATE AMINOTRANSFERASE 22.0 U/L (15-37); TOTAL PROTEIN, SERUM 8.0 g/dL (6.4-8.2)
[2024-11-08 08:00] VITALS: BP 99/53; TEMP 98.2; O2SAT 100
[2024-11-08 09:49] LABS: EOSINOPHILS % (MANUAL) 5 % (0-4); LYMPHOCYTES % (MANUAL) 18 % (16-48); MONOCYTES % (MANUAL) 6 % (0-11.0); NEUTROPHILS % (MANUAL) 71 (42-76); PLATELET ESTIMATE INCREASED
[2024-11-08 12:00] VITALS: BP 107/60; TEMP 98.8; O2SAT 100
[2024-11-08 16:00] VITALS: BP 113/64; TEMP 98.8; O2SAT 100
[2024-11-08 20:00] VITALS: BP 104/62; TEMP 98.1; O2SAT 100
[2024-11-09] VITALS: BP 107/67; TEMP 98.8; O2SAT 100
[2024-11-09 04:00] VITALS: BP 114/60; TEMP 98.4; O2SAT 96
[2024-11-09 06:41] LABS: PLATELET COUNT (AUTO) 589 K/uL (150-450); RED BLOOD CELL COUNT(AUTO) 3.58 MIL/uL (4.0-5.2); RED CELL DISTRIBUTION WIDTH 23.2 % (11.5-15.0); WHITE BLOOD COUNT (AUTO) 10.5 K/uL (4.3-11.0)
[2024-11-09 06:58] LABS: ASPARTATE AMINOTRANSFERASE 24.0 U/L (15-37); CALCIUM, SERUM 9.7 mg/dL (8.5-10.1); CREATININE 0.5 mg/dL (0.6-1.3); SODIUM SERUM 136.0 mmol/L (136-145); TOTAL PROTEIN, SERUM 7.7 g/dL (6.4-8.2); UREA NITROGEN, BLOOD 14.0 mg/dL (7-18)
[2024-11-09 08:00] VITALS: BP 92/56; TEMP 98.1; O2SAT 100
[2024-11-09 09:13] LABS: EOSINOPHILS % (MANUAL) 3 % (0-4); LYMPHOCYTES % (MANUAL) 15 % (16-48); MONOCYTES % (MANUAL) 6 % (0-11.0); NEUTROPHILS % (MANUAL) 76 (42-76)
[2024-11-09 09:14] LABS: PLATELET ESTIMATE INCREASED
[2024-11-09 12:00] VITALS: BP 101/53; TEMP 98.4; O2SAT 99
[2024-11-09 16:00] VITALS: BP 101/64; TEMP 99; O2SAT 100
[2024-11-09 20:00] VITALS: BP 128/68; TEMP 99.3; O2SAT 97
[2024-11-10] VITALS (7 sets, daily range): BP systolic 119–144; BP diastolic 61–67; TEMP 98.6–99.5; O2SAT 95–100
[2024-11-10 07:33] LABS: PLATELET COUNT (AUTO) 624 K/uL (150-450); RED BLOOD CELL COUNT(AUTO) 3.65 MIL/uL (4.0-5.2); RED CELL DISTRIBUTION WIDTH 23.0 % (11.5-15.0); WHITE BLOOD COUNT (AUTO) 8.9 K/uL (4.3-11.0)
[2024-11-10 07:48] LABS: ASPARTATE AMINOTRANSFERASE 24.0 U/L (15-37); CALCIUM, SERUM 9.6 mg/dL (8.5-10.1); CREATININE 0.5 mg/dL (0.6-1.3); SODIUM SERUM 139.0 mmol/L (136-145); TOTAL PROTEIN, SERUM 7.6 g/dL (6.4-8.2); UREA NITROGEN, BLOOD 12.0 mg/dL (7-18)
[2024-11-10] MEDS: Z GUARD REMEDY 4 OZ OINT TP PRN (17:33)
[2024-11-11] VITALS: BP 117/65; TEMP 99.7; O2SAT 100
[2024-11-11 04:00] VITALS: BP 104/64; TEMP 98.1; O2SAT 99
[2024-11-11 08:00] VITALS: BP 95/76; TEMP 97; O2SAT 99
[2024-11-11 08:44] LABS: PLATELET COUNT (AUTO) 610 K/uL (150-450); RED BLOOD CELL COUNT(AUTO) 3.96 MIL/uL (4.0-5.2); RED CELL DISTRIBUTION WIDTH 23.7 % (11.5-15.0); WHITE BLOOD COUNT (AUTO) 9.3 K/uL (4.3-11.0)
[2024-11-11 08:56] LABS: CALCIUM, SERUM 9.7 mg/dL (8.5-10.1); CREATININE 0.5 mg/dL (0.6-1.3); SODIUM SERUM 139.0 mmol/L (136-145); UREA NITROGEN, BLOOD 15.0 mg/dL (7-18)
[2024-11-11 09:03] LABS: ASPARTATE AMINOTRANSFERASE 21.0 U/L (15-37); TOTAL PROTEIN, SERUM 7.5 g/dL (6.4-8.2)
[2024-11-11] MEDS: MEROPENEM 1 G in IV NS 0.9% 100 ML IV SCH (09:47)
[2024-11-11 10:06] LABS: EOSINOPHILS % (MANUAL) 2 % (0-4); LYMPHOCYTES % (MANUAL) 19 % (16-48); MONOCYTES % (MANUAL) 11 % (0-11.0); NEUTROPHILS % (MANUAL) 68 (42-76); PLATELET ESTIMATE INCREASED
[2024-11-11 12:00] VITALS: BP 113/61; TEMP 98.6; O2SAT 100
[2024-11-11 16:00] VITALS: BP 131/69; TEMP 99.1; O2SAT 98
[2024-11-11 20:00] VITALS: BP 131/69; TEMP 98.8; O2SAT 98
[2024-11-12] VITALS (7 sets, daily range): BP systolic 103–163; BP diastolic 56–86; TEMP 98.2–99.3; O2SAT 97–99
[2024-11-12 07:04] LABS: ASPARTATE AMINOTRANSFERASE 20.0 U/L (15-37); CALCIUM, SERUM 9.5 mg/dL (8.5-10.1); CREATININE 0.6 mg/dL (0.6-1.3); SODIUM SERUM 139.0 mmol/L (136-145); TOTAL PROTEIN, SERUM 7.5 g/dL (6.4-8.2); UREA NITROGEN, BLOOD 15.0 mg/dL (7-18)
[2024-11-12 08:40] LABS: PLATELET COUNT (AUTO) 627 K/uL (150-450); RED BLOOD CELL COUNT(AUTO) 3.82 MIL/uL (4.0-5.2); RED CELL DISTRIBUTION WIDTH 23.2 % (11.5-15.0); WHITE BLOOD COUNT (AUTO) 12.7 K/uL (4.3-11.0)
[2024-11-13] VITALS: BP 111/61; TEMP 97.5; O2SAT 100
[2024-11-13 04:00] VITALS: BP 116/61; TEMP 98.8; O2SAT 100
[2024-11-13 06:50] LABS: PLATELET COUNT (AUTO) 624 K/uL (150-450); RED BLOOD CELL COUNT(AUTO) 3.68 MIL/uL (4.0-5.2); RED CELL DISTRIBUTION WIDTH 23.1 % (11.5-15.0); WHITE BLOOD COUNT (AUTO) 8.6 K/uL (4.3-11.0)
[2024-11-13 07:00] LABS: ASPARTATE AMINOTRANSFERASE 20.0 U/L (15-37); CALCIUM, SERUM 9.5 mg/dL (8.5-10.1); CREATININE 0.5 mg/dL (0.6-1.3); SODIUM SERUM 142.0 mmol/L (136-145); TOTAL PROTEIN, SERUM 7.7 g/dL (6.4-8.2); UREA NITROGEN, BLOOD 15.0 mg/dL (7-18)
[2024-11-13 08:00] VITALS: BP 135/60; TEMP 98.1; O2SAT 100
[2024-11-13 12:01] VITALS: BP 119/65; TEMP 97.9; O2SAT 100
[2024-11-13 16:00] VITALS: BP 119/65; TEMP 98.4; O2SAT 100
[2024-11-13 20:00] VITALS: BP 117/54; TEMP 99.1; O2SAT 100
[2024-11-14] VITALS: BP 95/53; TEMP 98.1; O2SAT 100
[2024-11-14 04:00] VITALS: BP 149/68; TEMP 98.2; O2SAT 95
[2024-11-14 07:11] LABS: PLATELET COUNT (AUTO) 576 K/uL (150-450); RED BLOOD CELL COUNT(AUTO) 3.77 MIL/uL (4.0-5.2); RED CELL DISTRIBUTION WIDTH 22.3 % (11.5-15.0); WHITE BLOOD COUNT (AUTO) 9.0 K/uL (4.3-11.0)
[2024-11-14 08:00] VITALS: BP 100/59; TEMP 98.1; O2SAT 100
[2024-11-14 08:18] LABS: ASPARTATE AMINOTRANSFERASE 23.0 U/L (15-37); CALCIUM, SERUM 9.4 mg/dL (8.5-10.1); CREATININE 0.5 mg/dL (0.6-1.3); PHOSPHORUS 3.6 mg/dL (2.5-4.9); SODIUM SERUM 142.0 mmol/L (136-145); TOTAL PROTEIN, SERUM 7.4 g/dL (6.4-8.2); UREA NITROGEN, BLOOD 16.0 mg/dL (7-18)
[2024-11-14 12:00] VITALS: BP 114/61; TEMP 98.2; O2SAT 100
[2024-11-14 16:00] VITALS: BP 133/66; TEMP 98.1; O2SAT 100
[2024-11-14] MEDS ORDERED: CLOBAZAM 10 MG TABLET PO SCH (16:44)
[2024-11-14] MEDS: CLOBAZAM 10 MG TABLET PO SCH (17:10)
[2024-11-14 20:00] VITALS: BP 129/57; TEMP 99.1; O2SAT 97
[2024-11-15] VITALS (7 sets, daily range): BP systolic 91–128; BP diastolic 57–70; TEMP 97.3–98.8; O2SAT 96–99
[2024-11-15 07:35] LABS: PLATELET COUNT (AUTO) 562 K/uL (150-450); RED BLOOD CELL COUNT(AUTO) 3.50 MIL/uL (4.0-5.2); RED CELL DISTRIBUTION WIDTH 22.4 % (11.5-15.0); WHITE BLOOD COUNT (AUTO) 8.8 K/uL (4.3-11.0)
[2024-11-15 08:00] LABS: ASPARTATE AMINOTRANSFERASE 25.0 U/L (15-37); CALCIUM, SERUM 9.6 mg/dL (8.5-10.1); CREATININE 0.5 mg/dL (0.6-1.3); PHOSPHORUS 3.8 mg/dL (2.5-4.9); SODIUM SERUM 144.0 mmol/L (136-145); TOTAL PROTEIN, SERUM 7.4 g/dL (6.4-8.2); UREA NITROGEN, BLOOD 18.0 mg/dL (7-18)
[2024-11-15] MEDS ORDERED: CLOB10TA3 PO (11:51)
[2024-11-15] MEDS ORDERED: LEVE100S GT (11:51)
[2024-11-15] MEDS ORDERED: PANT40SU2 GT (11:51)
[2024-11-15] MEDS ORDERED: METO25TA20 GT (11:51)
[2024-11-15] MEDS ORDERED: MERREM (11:55)
[2024-11-16] VITALS: BP 113/56; TEMP 98.7; O2SAT 98
[2024-11-16 04:00] VITALS: BP 134/66; TEMP 98.4; O2SAT 97
[2024-11-16] MEDS ORDERED: MAGNESIUM HYDROXIDE 30 ML UDC GT PRN (06:56)
[2024-11-16] MEDS ORDERED: ZOLPIDEM TARTRATE 5 MG TABLET GT PRN (06:56)
[2024-11-16] MEDS ORDERED: MAG HYDROX/AL HYDROX/SIMETH 30 ML UDC GT PRN (06:56)
[2024-11-16] MEDS ORDERED: DOCUSATE 100 MG/10 ML GT PRN (07:00)
[2024-11-16 07:05] LABS: ASPARTATE AMINOTRANSFERASE 21.0 U/L (15-37); CALCIUM, SERUM 9.4 mg/dL (8.5-10.1); CREATININE 0.5 mg/dL (0.6-1.3); SODIUM SERUM 146.0 mmol/L (136-145); TOTAL PROTEIN, SERUM 7.3 g/dL (6.4-8.2); UREA NITROGEN, BLOOD 18.0 mg/dL (7-18)
[2024-11-16 08:02] VITALS: BP 115/62; TEMP 98.2; O2SAT 98
[2024-11-16] MEDS: CLOBAZAM 10 MG TABLET GT SCH (09:31)
[2024-11-16 12:00] VITALS: BP 125/57; TEMP 98.2; O2SAT 98
[2024-11-16 16:00] VITALS: BP 129/63; TEMP 98.3; O2SAT 98
[2024-11-16 20:00] VITALS: BP 144/69; TEMP 98.2; O2SAT 98
[2024-11-17] VITALS (7 sets, daily range): BP systolic 107–118; BP diastolic 53–63; TEMP 98.4–100; O2SAT 96–99
[2024-11-17 07:34] LABS: PLATELET COUNT (AUTO) 569 K/uL (150-450); RED BLOOD CELL COUNT(AUTO) 3.59 MIL/uL (4.0-5.2); RED CELL DISTRIBUTION WIDTH 22.2 % (11.5-15.0); WHITE BLOOD COUNT (AUTO) 7.3 K/uL (4.3-11.0)
[2024-11-17 07:59] LABS: CALCIUM, SERUM 8.9 mg/dL (8.5-10.1); CREATININE 0.5 mg/dL (0.6-1.3); PHOSPHORUS 3.0 mg/dL (2.5-4.9); SODIUM SERUM 146.0 mmol/L (136-145); UREA NITROGEN, BLOOD 15.0 mg/dL (7-18)
[2024-11-17] MEDS: ACETAMINOPHEN 650 MG/20.3 ML UDC GT PRN (17:24)
[2024-11-17] MEDS: COLISTIMETHATE SODIUM 150 MG CBA VIAL NEB SCH (20:24)
[2024-11-18] VITALS: BP 127/65; TEMP 98.4; O2SAT 97
[2024-11-18 04:00] VITALS: BP 105/60; TEMP 98.2; O2SAT 96
[2024-11-18 06:40] LABS: RED BLOOD CELL COUNT(AUTO) 3.64 MIL/uL (4.0-5.2)
[2024-11-18 06:45] LABS: PLATELET COUNT (AUTO) 506 K/uL (150-450); RED CELL DISTRIBUTION WIDTH 21.9 % (11.5-15.0); WHITE BLOOD COUNT (AUTO) 8.9 K/uL (4.3-11.0)
[2024-11-18 06:48] LABS: ASPARTATE AMINOTRANSFERASE 17.0 U/L (15-37); CALCIUM, SERUM 9.3 mg/dL (8.5-10.1); CREATININE 0.4 mg/dL (0.6-1.3); PHOSPHORUS 3.7 mg/dL (2.5-4.9); SODIUM SERUM 148.0 mmol/L (136-145); TOTAL PROTEIN, SERUM 7.0 g/dL (6.4-8.2); UREA NITROGEN, BLOOD 17.0 mg/dL (7-18)
[2024-11-18 08:00] VITALS: BP 131/64; TEMP 99.1; O2SAT 97
[2024-11-18 10:22] LABS: BASOPHILS % (MANUAL) 0 % (0.0-2.0); EOSINOPHILS % (MANUAL) 1 % (0-4); LYMPHOCYTES % (MANUAL) 16 % (16-48); MONOCYTES % (MANUAL) 9 % (0-11.0); NEUTROPHILS % (MANUAL) 74 (42-76); PLATELET ESTIMATE INCREASED
[2024-11-18 12:00] VITALS: BP 97/53; TEMP 99; O2SAT 97
[2024-11-18 16:00] VITALS: BP 124/64; TEMP 98.6; O2SAT 97
[2024-11-18 20:00] VITALS: BP 124/58; TEMP 98.4; O2SAT 98
[2024-11-19] VITALS (7 sets, daily range): BP systolic 87–129; BP diastolic 55–76; TEMP 98.2–99.1; O2SAT 96–100
[2024-11-19 06:36] LABS: ASPARTATE AMINOTRANSFERASE 20.0 U/L (15-37); CALCIUM, SERUM 9.4 mg/dL (8.5-10.1); CREATININE 0.6 mg/dL (0.6-1.3); SODIUM SERUM 147.0 mmol/L (136-145); TOTAL PROTEIN, SERUM 7.2 g/dL (6.4-8.2); UREA NITROGEN, BLOOD 18.0 mg/dL (7-18)
[2024-11-19 06:43] LABS: PLATELET COUNT (AUTO) 476 K/uL (150-450); RED BLOOD CELL COUNT(AUTO) 3.66 MIL/uL (4.0-5.2); RED CELL DISTRIBUTION WIDTH 22.6 % (11.5-15.0); WHITE BLOOD COUNT (AUTO) 8.8 K/uL (4.3-11.0)
[2024-11-19 06:47] LABS: PHOSPHORUS 3.7 mg/dL (2.5-4.9)
[2024-11-19] MEDS: ARGININE/GLUTAMINE/CALCIUM BMB 1 EACH POWD.PACK GT SCH (12:30)
[2024-11-19 14:40] LABS: BASOPHILS % (MANUAL) 0 % (0.0-2.0); EOSINOPHILS % (MANUAL) 2 % (0-4); LYMPHOCYTES % (MANUAL) 13 % (16-48); MONOCYTES % (MANUAL) 4 % (0-11.0); NEUTROPHILS % (MANUAL) 81 (42-76); PLATELET ESTIMATE INCREASED
[2024-11-20] VITALS: BP 133/70; TEMP 98.8; O2SAT 96
[2024-11-20 04:00] VITALS: BP 107/61; TEMP 98.1; O2SAT 100
[2024-11-20 08:00] VITALS: BP 107/61; TEMP 98.1; O2SAT 100
[2024-11-20 08:03] LABS: PLATELET COUNT (AUTO) 399 K/uL (150-450); RED BLOOD CELL COUNT(AUTO) 3.56 MIL/uL (4.0-5.2); RED CELL DISTRIBUTION WIDTH 22.0 % (11.5-15.0); WHITE BLOOD COUNT (AUTO) 7.6 K/uL (4.3-11.0)
[2024-11-20 08:19] LABS: ASPARTATE AMINOTRANSFERASE 14.0 U/L (15-37); CALCIUM, SERUM 9.4 mg/dL (8.5-10.1); CREATININE 0.5 mg/dL (0.6-1.3); PHOSPHORUS 3.9 mg/dL (2.5-4.9); SODIUM SERUM 148.0 mmol/L (136-145); TOTAL PROTEIN, SERUM 7.1 g/dL (6.4-8.2); UREA NITROGEN, BLOOD 25.0 mg/dL (7-18)
[2024-11-20 12:00] VITALS: BP 112/58; TEMP 99.5; O2SAT 100
[2024-11-20 16:00] VITALS: BP 135/65; TEMP 100.2; O2SAT 97
[2024-11-20 20:10] VITALS: BP 102/56; TEMP 98.6; O2SAT 97
[2024-11-21 00:21] VITALS: BP 136/64; TEMP 98.1; O2SAT 97
[2024-11-21 05:40] VITALS: BP 137/65; TEMP 98.2; O2SAT 100
[2024-11-21 07:23] LABS: ASPARTATE AMINOTRANSFERASE 15.0 U/L (15-37); CALCIUM, SERUM 9.3 mg/dL (8.5-10.1); CREATININE 0.5 mg/dL (0.6-1.3); SODIUM SERUM 148.0 mmol/L (136-145); TOTAL PROTEIN, SERUM 7.3 g/dL (6.4-8.2); UREA NITROGEN, BLOOD 22.0 mg/dL (7-18)
[2024-11-21 08:00] VITALS: BP 121/69; TEMP 98.2; O2SAT 97
[2024-11-21 08:20] VITALS: BP 121/69
[2024-11-21] MEDS ORDERED: FREE WATER VIA TUBE FEEDING GT SCH (12:00)
== END 2024-11-21 14:22 | DRG 207 ==
LOC: TELE1 23:39
PROVIDERS: ADMIT Internal Medicine; ATTEND Internal Medicine
PROC: 5A1955Z Respiratory Ventilation, Greater than 96 Consecutive Hours (ICD-10-PCS; principal; 2024-11-05)
DX: J95.851 Ventilator associated pneumonia (principal); L89.154 Pressure ulcer of sacral region, stage 4; J15.61 Pneumonia due to Acinetobacter baumannii; L89.894 Pressure ulcer of other site, stage 4; G93.1 Anoxic brain damage, not elsewhere classified; J44.0 Chronic obstructive pulmonary disease with (acute) lower respiratory infection; J96.10 Chronic respiratory failure, unspecified whether with hypoxia or hypercapnia; Z99.11 Dependence on respirator [ventilator] status; E87.3 Alkalosis; R13.10 Dysphagia, unspecified; Z93.1 Gastrostomy status; I10 Essential (primary) hypertension; D50.9 Iron deficiency anemia, unspecified; E11.9 Type 2 diabetes mellitus without complications; E78.5 Hyperlipidemia, unspecified; M89.8X9 Other specified disorders of bone, unspecified site; Z86.73 Personal history of transient ischemic attack (TIA), and cerebral infarction without residual deficits; Z79.4 Long term (current) use of insulin; Z87.440 Personal history of urinary (tract) infections; Z88.0 Allergy status to penicillin; Z93.0 Tracheostomy status; Z98.61 Coronary angioplasty status; I48.0 Paroxysmal atrial fibrillation; F03.90 Unspecified dementia, unspecified severity, without behavioral disturbance, psychotic disturbance, mood disturbance, and anxiety; L89.610 Pressure ulcer of right heel, unstageable; G40.909 Epilepsy, unspecified, not intractable, without status epilepticus; E83.9 Disorder of mineral metabolism, unspecified; D72.829 Elevated white blood cell count, unspecified; Y83.3 Surgical operation with formation of external stoma as the cause of abnormal reaction of the patient, or of later complication, without mention of misadventure at the time of the procedure; Y92.89 Other specified places as the place of occurrence of the external cause; I25.10 Atherosclerotic heart disease of native coronary artery without angina pectoris
CPT/HCPCS: 31720; 36415; 71045-TC; 80048-TC; 80053-TC; 82728-TC; 82962-TC; 83540-TC; 83735-TC; 84100-TC; 85025-TC; 85027-TC; 87040-TC; 87070-TC; 87081-TC; 87186-TC; 87205-TC; 94002-TC; 94003-TC; 94640-TC; 94760-TC; 94761-TC; 94762-TC; 94799-TC; A4223; A4623; A6213; A6253; A6403; A7526; G0378; J0770; J1815; J1953; J2185; J7030; J7050

== ENCOUNTER 2025-01-17 15:27 | Inpatient (IN) | payer MEDICARE, OTHER ==
[~2025-01-17] VITALS: Ht 165.1 cm; Wt 71.7 kg
[2025-01-17] VITALS (7 sets, daily range): BP systolic 123–150; BP diastolic 69–92; TEMP 98.6; O2SAT 97–100
[~2025-01-17 15:27] MED LIST changes: +CLOB10TA3 PO; +MERREM; +METO25TA20 GT; -NEBI5TAB8 GT; +PANT40SU2 GT
[2025-01-17 16:15] LABS: PLATELET COUNT (AUTO) 448 K/uL (150-450); RED BLOOD CELL COUNT(AUTO) 3.70 MIL/uL (4.0-5.2); RED CELL DISTRIBUTION WIDTH 22.7 % (11.5-15.0); WHITE BLOOD COUNT (AUTO) 23.9 K/uL (4.3-11.0)
[2025-01-17 16:22] LABS: INR 1.03 (0.91-1.10)
[2025-01-17] MEDS: IV NS 0.9% 1,000 ML BAG IV ONE (16:30)
[2025-01-17 16:47] LABS: LACTIC ACID 0.9 mmol/L (0.4-2.0)
[2025-01-17] MEDS: CEFEPIME 1 GM in IV D5W 50 ML IV ONE (16:50)
[2025-01-17 16:51] LABS: CALCIUM, SERUM 9.7 mg/dL (8.5-10.1); CREATININE 0.3 mg/dL (0.6-1.3); SODIUM SERUM 130.0 mmol/L (136-145); UREA NITROGEN, BLOOD 11.0 mg/dL (7-18)
[2025-01-17 17:00] LABS: ASPARTATE AMINOTRANSFERASE 79.0 U/L (15-37); TOTAL PROTEIN, SERUM 8.2 g/dL (6.4-8.2)
[2025-01-17 17:03] LABS: BAND % (MANUAL) 1 % (0.0-5.0); BASOPHILS % (MANUAL) 0 % (0.0-2.0); EOSINOPHILS % (MANUAL) 0 % (0-4); LYMPHOCYTES % (MANUAL) 5 % (16-48); MONOCYTES % (MANUAL) 3 % (0-11.0); NEUTROPHILS % (MANUAL) 91 (42-76); PLATELET ESTIMATE ADEQUATE
[2025-01-17 17:18] LABS: ABG BASE EXCESS 0.7 mmol/L (-2.0-3.0); ABG OXYGEN SATURATION 97.7 % (94.0-98.0); ABG PCO2 80.7 mmHg (32.0-45.0); ABG PH 7.191 (7.350-7.450); ABG PO2 147.0 mmHg (83.0-108.0); ABG TOTAL HEMOGLOBIN 9.9 G/dL (12.0-16.0); FRACTIONATED INSPIRED OXYGEN 40.0 %; PEEP,BG 5 cm H2O; SET RATE, BG 12.0; SITE, ABG RIGHT RADIAL; VT, ABG 450 mL
[2025-01-17] MEDS: VANCOMYCIN 1 GM in IV D5W 250 ML IV ONE (17:20)
[2025-01-17] MEDS ORDERED: ACET160L44 GT (17:22)
[2025-01-17] MEDS ORDERED: POTA20PA3 GT (17:22)
[2025-01-17] MEDS ORDERED: PANT40SU2 GT (17:22)
[2025-01-17] MEDS ORDERED: POVI3780 TP (17:22)
[2025-01-17] MEDS ORDERED: FERR220E2 GT (17:22)
[2025-01-17] MEDS ORDERED: NUT.237L31 GT (17:22)
[2025-01-17] MEDS ORDERED: ONDA-97 GT (17:22)
[2025-01-17] MEDS ORDERED: LEVE100S GT (17:22)
[2025-01-17] MEDS ORDERED: CLON0.1T GT (17:22)
[2025-01-17] MEDS ORDERED: METO25TA6 GT (17:22)
[2025-01-17] MEDS ORDERED: MAG30ORA GT (17:22)
[2025-01-17] MEDS ORDERED: IPRA3AMP22 IH ×2 (17:22)
[2025-01-17] MEDS ORDERED: MAG HYDROX/AL HYDROX/SIMETH 30 ML UDC PO PRN (18:00)
[2025-01-17] MEDS ORDERED: DOSING PER PHARMACY-CEFEPIME IVPB XX PRN (18:00)
[2025-01-17] MEDS ORDERED: MAGNESIUM HYDROXIDE 30 ML UDC PO PRN (18:00)
[2025-01-17] MEDS: HYDROCORTISONE SOD SUCCINATE 100 MG/2 ML VIAL IV SCH (18:00)
[2025-01-17] MEDS ORDERED: DOSING PER PHARMACY-VANCOMYCIN IV XX PRN (18:00)
[2025-01-17] MEDS ORDERED: ONDANSETRON HCL/PF 4 MG/2 ML VIAL IVP PRN (18:00)
[2025-01-17] MEDS ORDERED: Z GUARD REMEDY 4 OZ OINT TP PRN (18:00)
[2025-01-17 18:06] LABS: APPEARANCE,URINE CLOUDY (CLEAR); BLOOD, URINE 1+ Ery/uL (NEGATIVE); LEUKOCYTE ESTERASE ,URINE 3+ (NEGATIVE); NITRITE, URINE POSITIVE (NEGATIVE); UGLUCOSE NEGATIVE (NEGATIVE)
[2025-01-17 18:37] LABS: URINE AMORPHOUS PHOSPHATES Many /HPF (None Seen)
[2025-01-17 18:38] LABS: TRIPLE PHOSPHATE CRYSTAL,UR Many /HPF (None Seen)
[2025-01-17 18:42] LABS: SQUAMOUS EPITHELIAL CELL,UR None Seen /HPF (None Seen)
[2025-01-17 18:44] LABS: ADD URINE CULTURE YES
[2025-01-17] MEDS: IV NS 0.9% 1,000 ML IV PRN (20:50)
[2025-01-17] MEDS ORDERED: IV NS 0.9% 250 ML IV PRN (21:00)
[2025-01-17] MEDS: VANCOMYCIN 500 MG in IV D5W 100ml IV ONE (21:05)
[2025-01-17] MEDS: ENOXAPARIN SODIUM 40 MG/0.4 ML DISP.SYRIN SQ SCH (21:05)
[2025-01-17] MEDS: GLUCERNA 1.2 1,000 ML BOTTLE GT PRN (22:54)
[2025-01-18] VITALS (22 sets, daily range): BP systolic 124–186; BP diastolic 66–87; TEMP 98.2–99; O2SAT 98–100
[2025-01-18] MEDS: CEFEPIME 2 GM in IV D5W 100 ML IV SCH (01:08)
[2025-01-18 04:10] LABS: PLATELET COUNT (AUTO) 386 K/uL (150-450); RED BLOOD CELL COUNT(AUTO) 3.15 MIL/uL (4.0-5.2); RED CELL DISTRIBUTION WIDTH 23.1 % (11.5-15.0); WHITE BLOOD COUNT (AUTO) 21.5 K/uL (4.3-11.0)
[2025-01-18 04:17] LABS: CALCIUM, SERUM 9.4 mg/dL (8.5-10.1); CREATININE 0.5 mg/dL (0.6-1.3); PHOSPHORUS 3.5 mg/dL (2.5-4.9); SODIUM SERUM 132.0 mmol/L (136-145); UREA NITROGEN, BLOOD 13.0 mg/dL (7-18)
[2025-01-18 06:05] LABS: ABG BASE EXCESS 4.0 mmol/L (-2.0-3.0); ABG OXYGEN SATURATION 98.0 % (94.0-98.0); ABG PCO2 38.5 mmHg (32.0-45.0); ABG PH 7.477 (7.350-7.450); ABG PO2 107.4 mmHg (83.0-108.0); ABG TOTAL HEMOGLOBIN 8.6 G/dL (12.0-16.0); PEEP,BG 5 cm H2O; SET RATE, BG 20.0; SITE, ABG LEFT RADIAL; VT, ABG 450 mL
[2025-01-18] MEDS: PANTOPRAZOLE 40 MG TABLET.DR PO SCH (08:09)
[2025-01-18] MEDS: VANCOMYCIN 1 GM in IV D5W 250ml IV SCH (08:45)
[2025-01-18] MEDS: ACETAMINOPHEN 325 MG TABLET PO PRN (11:05)
[2025-01-18] MEDS ORDERED: DEXTROSE 50%-WATER 50 ML DISP.SYRIN IV PRN (12:00)
[2025-01-18] MEDS: DAKINS QUARTER STRENGTH (0.125%) 480 ML BOTTLE TOP SCH (12:10)
[2025-01-18] MEDS: BLOOD SUGAR DIAGNOSTIC 1 EACH STRIP IN SCH (12:10)
[2025-01-18] MEDS: INSULIN REGULAR, HUMAN 100 UNIT/ML 3 ML VIAL SQ PRN (12:12)
[2025-01-18] MEDS: IPRATROPIUM NEB FS 0.5 MG/2.5 ML AMPUL.NEB NEB SCH (13:48)
[2025-01-18] MEDS: MEROPENEM 1 G in IV NS 0.9% 100 ML IV SCH (14:04)
[2025-01-18] MEDS: PROSOURCE / PROSTAT (PYXIS) 30 ML UDC GT SCH (17:00)
[2025-01-18] MEDS ORDERED: ALBUTEROL FS 2.5 MG/3 ML VIAL.NEB NEB PRN (20:00)
[2025-01-18] MEDS ORDERED: TRAMADOL HCL 50 MG TABLET GT PRN (20:00)
[2025-01-18] MEDS ORDERED: IPRATROPIUM NEB FS 0.5 MG/2.5 ML AMPUL.NEB NEB PRN (20:00)
[2025-01-18] MEDS: LEVETIRACETAM SOL (5 ML) 100 MG/ML UDC GT SCH (20:03)
[2025-01-18] MEDS: CHLORHEXIDINE GLUCONATE 15 ML UDC MM SCH (20:03)
[2025-01-18] MEDS: METOPROLOL TARTRATE 25 MG TABLET GT SCH (20:04)
[2025-01-18] MEDS: ATORVASTATIN 40 MG TABLET GT SCH (21:18)
[2025-01-19] VITALS: BP 142/64; TEMP 99; O2SAT 99
[2025-01-19] MEDS: ALBUTEROL FS 2.5 MG/3 ML VIAL.NEB NEB SCH (01:47)
[2025-01-19] MEDS: IPRATROPIUM NEB FS 0.5 MG/2.5 ML AMPUL.NEB NEB SCH (01:47)
[2025-01-19 04:00] VITALS: BP 150/70; TEMP 99; O2SAT 98
[2025-01-19] MEDS: GLUCERNA 1.2 1,000 ML BOTTLE GT SCH (05:02)
[2025-01-19 06:55] LABS: PLATELET COUNT (AUTO) 396 K/uL (150-450); RED BLOOD CELL COUNT(AUTO) 3.63 MIL/uL (4.0-5.2); RED CELL DISTRIBUTION WIDTH 23.4 % (11.5-15.0); WHITE BLOOD COUNT (AUTO) 13.9 K/uL (4.3-11.0)
[2025-01-19 07:05] LABS: ASPARTATE AMINOTRANSFERASE 65.0 U/L (15-37); TOTAL PROTEIN, SERUM 7.3 g/dL (6.4-8.2)
[2025-01-19 07:09] LABS: ASPARTATE AMINOTRANSFERASE 65.0 U/L (15-37); CALCIUM, SERUM 9.6 mg/dL (8.5-10.1); CREATININE 0.7 mg/dL (0.6-1.3); PHOSPHORUS 3.2 mg/dL (2.5-4.9); SODIUM SERUM 137.0 mmol/L (136-145); TOTAL PROTEIN, SERUM 7.3 g/dL (6.4-8.2); UREA NITROGEN, BLOOD 9.0 mg/dL (7-18)
[2025-01-19 08:19] VITALS: BP 163/80; TEMP 98; O2SAT 100
[2025-01-19] MEDS: MULTIVIT W/MINERALS 1 TAB TABLET GT SCH (08:58)
[2025-01-19] MEDS: ASCORBIC ACID 500 MG TABLET GT SCH (08:58)
[2025-01-19] MEDS: FERROUS SULFATE UDC 300 MG/5 ML UDC GT SCH (08:58)
[2025-01-19] MEDS: OXCARBAZEPINE 150 MG TABLET GT SCH (08:59)
[2025-01-19] MEDS: PANTOPRAZOLE 40 MG/PACK PACK GT SCH (09:04)
[2025-01-19] MEDS: POTASSIUM CHLORIDE 20 MEQ POWDER PACKET GT ONE (10:47)
[2025-01-19] MEDS: DAKINS QUARTER STRENGTH (0.125%) 480 ML BOTTLE TOP SCH (10:48)
[2025-01-19 12:00] VITALS: BP 156/70; TEMP 98.2; O2SAT 100
[2025-01-19 16:00] VITALS: BP 165/81; TEMP 98; O2SAT 100
[2025-01-19] MEDS: VANCOMYCIN 1 GM in IV D5W 250ml IV SCH (17:03)
[2025-01-19 20:00] VITALS: BP 140/71; TEMP 98.1; O2SAT 100
[2025-01-20] VITALS: BP 150/75; TEMP 97.7; O2SAT 99
[2025-01-20 04:00] VITALS: BP 148/78; TEMP 98; O2SAT 99
[2025-01-20 06:22] LABS: PLATELET COUNT (AUTO) 391 K/uL (150-450); RED BLOOD CELL COUNT(AUTO) 3.56 MIL/uL (4.0-5.2); RED CELL DISTRIBUTION WIDTH 22.9 % (11.5-15.0); WHITE BLOOD COUNT (AUTO) 11.1 K/uL (4.3-11.0)
[2025-01-20 06:47] LABS: ASPARTATE AMINOTRANSFERASE 51.0 U/L (15-37); CALCIUM, SERUM 9.3 mg/dL (8.5-10.1); CREATININE 0.6 mg/dL (0.6-1.3); PHOSPHORUS 2.6 mg/dL (2.5-4.9); SODIUM SERUM 137.0 mmol/L (136-145); TOTAL PROTEIN, SERUM 6.9 g/dL (6.4-8.2); UREA NITROGEN, BLOOD 13.0 mg/dL (7-18)
[2025-01-20 08:00] VITALS: BP 148/78; TEMP 98; O2SAT 99
[2025-01-20] MEDS: POTASSIUM CHLORIDE 20 MEQ POWDER PACKET GT ONE (09:40)
[2025-01-20 12:00] VITALS: BP 157/66; TEMP 98.1; O2SAT 100
[2025-01-20 16:00] VITALS: BP 165/69; TEMP 98.1; O2SAT 100
[2025-01-20] MEDS: VANCOMYCIN 750 MG in IV D5W 250 ML IV SCH (16:03)
[2025-01-20] MEDS: CLONIDINE HCL 0.1 MG TABLET GT PRN (16:35)
[2025-01-20 20:00] VITALS: BP 158/76; TEMP 99.1; O2SAT 100
[2025-01-21] VITALS: BP 163/64; TEMP 98.8; O2SAT 100
[2025-01-21 04:00] VITALS: BP 155/89; TEMP 98.6; O2SAT 100
[2025-01-21 06:36] LABS: PLATELET COUNT (AUTO) 392 K/uL (150-450); RED BLOOD CELL COUNT(AUTO) 3.17 MIL/uL (4.0-5.2); RED CELL DISTRIBUTION WIDTH 22.7 % (11.5-15.0); WHITE BLOOD COUNT (AUTO) 10.8 K/uL (4.3-11.0)
[2025-01-21 07:03] LABS: ASPARTATE AMINOTRANSFERASE 29.0 U/L (15-37); CALCIUM, SERUM 8.9 mg/dL (8.5-10.1); CREATININE 0.5 mg/dL (0.6-1.3); PHOSPHORUS 2.3 mg/dL (2.5-4.9); TOTAL PROTEIN, SERUM 6.3 g/dL (6.4-8.2); UREA NITROGEN, BLOOD 11.0 mg/dL (7-18)
[2025-01-21 07:24] LABS: SODIUM SERUM 136.0 mmol/L (136-145)
[2025-01-21 08:00] VITALS: BP 190/78; TEMP 97.3; O2SAT 100
[2025-01-21] MEDS: POTASSIUM CHLORIDE 20 MEQ POWDER PACKET NG SCH (10:24)
[2025-01-21 12:00] VITALS: BP 190/78; TEMP 97.9; O2SAT 100
[2025-01-21 16:00] VITALS: BP 165/72; TEMP 97.1; O2SAT 99
[2025-01-21] MEDS: VANCOMYCIN 750 MG in IV D5W 250 ML IV SCH (16:34)
[2025-01-21] MEDS: NEUTRA PHOS 1 POWD.PACKET GT ONE (17:12)
[2025-01-21 20:00] VITALS: BP 116/72; TEMP 98.8; O2SAT 100
[2025-01-22] VITALS: BP 134/58; TEMP 98.8; O2SAT 100
[2025-01-22 04:00] VITALS: BP 135/71; TEMP 98.6; O2SAT 100
[2025-01-22 07:33] LABS: CALCIUM, SERUM 9.4 mg/dL (8.5-10.1); CREATININE 0.6 mg/dL (0.6-1.3); PHOSPHORUS 2.1 mg/dL (2.5-4.9); SODIUM SERUM 141.0 mmol/L (136-145); UREA NITROGEN, BLOOD 13.0 mg/dL (7-18)
[2025-01-22 07:43] LABS: INR 1.06 (0.91-1.10)
[2025-01-22 08:00] VITALS: BP 186/71; TEMP 98.1; O2SAT 100
[2025-01-22] MEDS: hydrALAZINE HCL IV 20 MG VIAL IV PRN (08:36)
[2025-01-22] MEDS: POTASSIUM CL. PREMIX PERIPHER. 50 ML IV SCH (09:44)
[2025-01-22 12:00] VITALS: BP 180/78; TEMP 98.4; O2SAT 100
[2025-01-22] MEDS: CLONIDINE HCL 0.1MG/24H PTWK 1 EA PATCH TD SCH (12:34)
[2025-01-22 16:00] VITALS: BP 160/75; TEMP 99.3; O2SAT 100
[2025-01-22] MEDS: Sodium Phosphate 15 MMOL in IV NS 0.9% 245 ML IV ONE (16:20)
[2025-01-22 20:00] VITALS: BP 167/74; TEMP 99.1; O2SAT 100
[2025-01-23] VITALS: BP 186/75; TEMP 99; O2SAT 100
[2025-01-23 04:00] VITALS: BP 146/75; TEMP 99.3; O2SAT 99
[2025-01-23] MEDS ORDERED: LEVETIRACETAM (500MG) 500 MG/5 ML VIAL IV ONE (05:07)
[2025-01-23] MEDS: LEVETIRACETAM (500MG) 500 MG in IV NS 0.9% 100 ML IV SCH (05:18)
[2025-01-23] MEDS ORDERED: MAGNESIUM HYDROXIDE 30 ML UDC GT PRN (07:09)
[2025-01-23] MEDS ORDERED: MAG HYDROX/AL HYDROX/SIMETH 30 ML UDC GT PRN (07:09)
[2025-01-23 07:50] LABS: CALCIUM, SERUM 9.4 mg/dL (8.5-10.1); CREATININE 0.6 mg/dL (0.6-1.3); PHOSPHORUS 2.4 mg/dL (2.5-4.9); SODIUM SERUM 141.0 mmol/L (136-145); UREA NITROGEN, BLOOD 7.0 mg/dL (7-18)
[2025-01-23 07:56] LABS: PLATELET COUNT (AUTO) 582 K/uL (150-450); RED BLOOD CELL COUNT(AUTO) 4.03 MIL/uL (4.0-5.2); RED CELL DISTRIBUTION WIDTH 23.4 % (11.5-15.0); WHITE BLOOD COUNT (AUTO) 14.4 K/uL (4.3-11.0)
[2025-01-23 08:00] VITALS: BP 133/81; TEMP 97.9; O2SAT 99
[2025-01-23] MEDS: POTASSIUM CL. PREMIX PERIPHER. 50 ML IV SCH (08:38)
[2025-01-23] MEDS ORDERED: IOHEXOL-300 100 ML VIAL IV ONE (08:56)
[2025-01-23] MEDS ORDERED: IV NS 0.9% 250 ML IV ONE (08:57)
[2025-01-23] MEDS ORDERED: CT SWABBABLE VALVE TRANS SET 1 EA INFUS.SET MC ONE (08:57)
[2025-01-23 12:00] VITALS: BP 137/89; TEMP 98.8; O2SAT 99
[2025-01-23] MEDS: LORAZEPAM INJ 2 MG/ML VIAL IV PRN (14:21)
[2025-01-23 16:04] VITALS: BP 135/83; TEMP 98.4; O2SAT 100
[2025-01-23] MEDS: Sodium Phosphate 15 MMOL in IV NS 0.9% 245 ML IV SCH (17:17)
[2025-01-23 20:00] VITALS: BP 151/63; TEMP 98.8; O2SAT 98
[2025-01-24 01:00] VITALS: BP 120/56; TEMP 98.9; O2SAT 98
[2025-01-24 04:00] VITALS: BP 144/60; TEMP 98.2; O2SAT 98
[2025-01-24 06:25] LABS: PLATELET COUNT (AUTO) 557 K/uL (150-450); RED BLOOD CELL COUNT(AUTO) 3.67 MIL/uL (4.0-5.2); RED CELL DISTRIBUTION WIDTH 24.0 % (11.5-15.0); WHITE BLOOD COUNT (AUTO) 14.7 K/uL (4.3-11.0)
[2025-01-24 06:41] LABS: CALCIUM, SERUM 8.4 mg/dL (8.5-10.1); CREATININE 0.7 mg/dL (0.6-1.3); PHOSPHORUS 2.5 mg/dL (2.5-4.9); SODIUM SERUM 140.0 mmol/L (136-145); UREA NITROGEN, BLOOD 12.0 mg/dL (7-18)
[2025-01-24] MEDS: POTASSIUM CL. PREMIX PERIPHER. 50 ML IV SCH (08:04)
[2025-01-24] MEDS: Potassium Chloride 20 MEQ in IV NS 0.9% 1,000 ML IV SCH (08:21)
[2025-01-24] MEDS: LEVETIRACETAM SOL (5 ML) 100 MG/ML UDC GT SCH (08:37)
[2025-01-24 09:00] VITALS: BP 150/66; TEMP 98.1; O2SAT 98
[2025-01-24] MEDS: MAGNESIUM OXIDE 400 MG TABLET GT ONE (10:00)
[2025-01-24 12:00] VITALS: BP 143/57; TEMP 98.2; O2SAT 98
[2025-01-24 14:52] LABS: CALCIUM, SERUM 8.6 mg/dL (8.5-10.1); CREATININE 0.6 mg/dL (0.6-1.3); SODIUM SERUM 138.0 mmol/L (136-145); UREA NITROGEN, BLOOD 13.0 mg/dL (7-18)
[2025-01-24 15:37] LABS: POTASSIUM RNDM,URINE 66 mmol/L (25-125); URINE SODIUM, RANDOM 11 mmol/l (40-220)
[2025-01-24 16:00] VITALS: BP 136/62; TEMP 100; O2SAT 99
[2025-01-24] MEDS: ACETAMINOPHEN 650 MG/20.3 ML UDC GT PRN (17:07)
[2025-01-24 20:00] VITALS: BP 141/57; TEMP 100; O2SAT 100
[2025-01-25] VITALS (9 sets, daily range): BP systolic 150–179; BP diastolic 61–129; TEMP 97.8–99.1; O2SAT 100
[2025-01-25 06:45] LABS: CALCIUM, SERUM 8.6 mg/dL (8.5-10.1); CREATININE 0.6 mg/dL (0.6-1.3); PHOSPHORUS 2.0 mg/dL (2.5-4.9); PLATELET COUNT (AUTO) 461 K/uL (150-450); RED BLOOD CELL COUNT(AUTO) 3.64 MIL/uL (4.0-5.2); RED CELL DISTRIBUTION WIDTH 23.9 % (11.5-15.0); SODIUM SERUM 136.0 mmol/L (136-145); UREA NITROGEN, BLOOD 12.0 mg/dL (7-18); WHITE BLOOD COUNT (AUTO) 12.6 K/uL (4.3-11.0)
[2025-01-25] MEDS: NEUTRA PHOS 1 POWD.PACKET PO ONE (16:47)
[2025-01-26] VITALS: BP 144/87; TEMP 97.6; O2SAT 100
[2025-01-26 04:00] VITALS: BP 142/51; TEMP 97.6; O2SAT 100
[2025-01-26 07:58] LABS: CALCIUM, SERUM 8.6 mg/dL (8.5-10.1); CREATININE 0.6 mg/dL (0.6-1.3); PHOSPHORUS 2.1 mg/dL (2.5-4.9); SODIUM SERUM 138.0 mmol/L (136-145); UREA NITROGEN, BLOOD 9.0 mg/dL (7-18)
[2025-01-26 08:00] VITALS: BP 158/71; TEMP 97.5; O2SAT 100
[2025-01-26 08:07] LABS: PLATELET COUNT (AUTO) 503 K/uL (150-450); RED BLOOD CELL COUNT(AUTO) 3.80 MIL/uL (4.0-5.2); RED CELL DISTRIBUTION WIDTH 24.4 % (11.5-15.0); WHITE BLOOD COUNT (AUTO) 13.9 K/uL (4.3-11.0)
[2025-01-26 12:00] VITALS: BP 155/64; TEMP 97.7; O2SAT 100
[2025-01-26 12:11] LABS: BAND % (MANUAL) 1 % (0.0-5.0); MONOCYTES % (MANUAL) 4 % (0-11.0); MYELOCYTES % 1 % (0-0); NEUTROPHILS % (MANUAL) 94 (42-76); PLATELET ESTIMATE INCREASED
[2025-01-26 16:00] VITALS: BP 173/75; TEMP 98.1; O2SAT 100
[2025-01-26] MEDS: NEUTRA PHOS 1 POWD.PACKET NG ONE (16:26)
[2025-01-26 20:00] VITALS: BP 147/65; TEMP 97.7; O2SAT 100
[2025-01-27] VITALS: BP 139/56; TEMP 97.7; O2SAT 100
[2025-01-27 04:00] VITALS: BP 123/70; TEMP 98.3; O2SAT 100
[2025-01-27 06:23] LABS: PLATELET COUNT (AUTO) 548 K/uL (150-450); RED BLOOD CELL COUNT(AUTO) 3.95 MIL/uL (4.0-5.2); RED CELL DISTRIBUTION WIDTH 25.8 % (11.5-15.0); WHITE BLOOD COUNT (AUTO) 11.4 K/uL (4.3-11.0)
[2025-01-27 06:37] LABS: CALCIUM, SERUM 8.5 mg/dL (8.5-10.1); CREATININE 0.5 mg/dL (0.6-1.3); PHOSPHORUS 2.5 mg/dL (2.5-4.9); SODIUM SERUM 141.0 mmol/L (136-145); UREA NITROGEN, BLOOD 10.0 mg/dL (7-18)
[2025-01-27 08:00] VITALS: BP 162/64; TEMP 98.1; O2SAT 100
[2025-01-27 12:00] VITALS: BP 182/81; TEMP 98.2; O2SAT 100
[2025-01-27 16:00] VITALS: BP 162/69; TEMP 97.9; O2SAT 100
[2025-01-27 20:00] VITALS: BP 133/60; TEMP 98.4; O2SAT 100
[2025-01-28] VITALS: BP 147/55; TEMP 98; O2SAT 100
[2025-01-28 04:00] VITALS: BP 163/74; TEMP 97.7; O2SAT 100
[2025-01-28 06:53] LABS: PLATELET COUNT (AUTO) 578 K/uL (150-450); RED BLOOD CELL COUNT(AUTO) 3.96 MIL/uL (4.0-5.2); RED CELL DISTRIBUTION WIDTH 25.5 % (11.5-15.0); WHITE BLOOD COUNT (AUTO) 12.7 K/uL (4.3-11.0)
[2025-01-28 07:19] LABS: CALCIUM, SERUM 8.7 mg/dL (8.5-10.1); CREATININE 0.6 mg/dL (0.6-1.3); PHOSPHORUS 2.3 mg/dL (2.5-4.9); SODIUM SERUM 141.0 mmol/L (136-145); UREA NITROGEN, BLOOD 11.0 mg/dL (7-18)
[2025-01-28 08:00] VITALS: BP 186/74; TEMP 98.1; O2SAT 100
[2025-01-28 12:00] VITALS: BP 138/78; TEMP 97.9; O2SAT 100
[2025-01-28 16:00] VITALS: BP 112/75; TEMP 97.9; O2SAT 100
[2025-01-28] MEDS: NEUTRA PHOS 1 POWD.PACKET NG ONE (17:17)
[2025-01-28] MEDS ORDERED: ERTA1VIA4 IV (18:08)
[2025-01-28 22:02] VITALS: BP 95/90
== END 2025-01-28 22:30 | DRG 870 ==
LOC: ER 15:34 → ICU 18:55 → TELE1 01-18 17:15 → TELE-TD 01-18 17:32 → TELE1 01-21 09:39
PROVIDERS: ATTEND Student in an Organized Health Care Education/Training Program
PROC: 5A1955Z Respiratory Ventilation, Greater than 96 Consecutive Hours (ICD-10-PCS; principal; 2025-01-17)
DX: A41.9 Sepsis, unspecified organism (principal); L89.154 Pressure ulcer of sacral region, stage 4; J96.22 Acute and chronic respiratory failure with hypercapnia; J96.21 Acute and chronic respiratory failure with hypoxia; E87.1 Hypo-osmolality and hyponatremia; G93.1 Anoxic brain damage, not elsewhere classified; M86.18 Other acute osteomyelitis, other site; Z99.11 Dependence on respirator [ventilator] status; J98.11 Atelectasis; L97.914 Non-pressure chronic ulcer of unspecified part of right lower leg with necrosis of bone; I25.10 Atherosclerotic heart disease of native coronary artery without angina pectoris; E11.69 Type 2 diabetes mellitus with other specified complication; E78.5 Hyperlipidemia, unspecified; Z86.73 Personal history of transient ischemic attack (TIA), and cerebral infarction without residual deficits; I10 Essential (primary) hypertension; I48.91 Unspecified atrial fibrillation; G40.909 Epilepsy, unspecified, not intractable, without status epilepticus; F03.90 Unspecified dementia, unspecified severity, without behavioral disturbance, psychotic disturbance, mood disturbance, and anxiety; E11.40 Type 2 diabetes mellitus with diabetic neuropathy, unspecified; E11.51 Type 2 diabetes mellitus with diabetic peripheral angiopathy without gangrene; Z93.1 Gastrostomy status; Z93.0 Tracheostomy status; Z98.61 Coronary angioplasty status; Z88.0 Allergy status to penicillin; Z79.899 Other long term (current) drug therapy; Z79.02 Long term (current) use of antithrombotics/antiplatelets; Z79.4 Long term (current) use of insulin; Z79.01 Long term (current) use of anticoagulants; R13.10 Dysphagia, unspecified; K21.9 Gastro-esophageal reflux disease without esophagitis; Z79.51 Long term (current) use of inhaled steroids; R74.01 Elevation of levels of liver transaminase levels; R74.8 Abnormal levels of other serum enzymes; D50.9 Iron deficiency anemia, unspecified; E87.6 Hypokalemia; I70.8 Atherosclerosis of other arteries; E11.622 Type 2 diabetes mellitus with other skin ulcer; Z87.440 Personal history of urinary (tract) infections; L89.610 Pressure ulcer of right heel, unstageable; L98.9 Disorder of the skin and subcutaneous tissue, unspecified
CPT/HCPCS: 31720; 36415; 36600; 71045-TC; 71260-TC; 73590-TC; 76705-TC; 78226; 80048-TC; 80053-TC; 80076-TC; 80202-TC; 81001; 82436-TC; 82803-TC; 82962-TC; 83605-TC; 83735-TC; 83935-TC; 84100-TC; 84133-TC; 84300-TC; 85025-TC; 85027-TC; 85610-TC; 85730-TC; 86140-TC; 87040-TC; 87070-TC; 87081-TC; 87086-TC; 87186-TC; 94002-TC; 94003-TC; 94760-TC; 94762-TC; 94799-TC; 99082-TC; A4217; A4223; A4623; A6213; A6253; A6254; A6403; A9537; A9563; G0378; J0360; J0692; J1650; J1720; J1815; J1953; J2060; J2185; J3373; J3374; J3480; J3490; J7030; J7050; J7060; Q9967